=== PATIENT | female | born 1945 | race Caucasian/White ===

== ENCOUNTER 2017-11-13 19:01 | Emergency (ER) | payer SELFPAY ==
[2017-11-13 19:02] VITALS: BP 233/129; PULSE 82; PULSE 85; RESP 16; TEMP 37.1; O2SAT 94; O2SAT 95; BMI 54.2
[2017-11-13 19:54] VITALS: BP 215/122; PULSE 85; RESP 14; O2SAT 99
--- NOTE | 2017-11-13 20:11 | ED.VISSUMM ---
- ER Visit Summary Date of Service: 11/13/17 Chief Complaint: [Pain in left leg] History of Present Illness: The patient is a 72 F [presents the emergency department with pain in her left leg that started about a month ago. Patient complains of numbness to both buttocks left greater than right. Patient denies any pain in her back. Patient denies any injury to her back. Patient states the pain in her left leg at times is very severe. Patient was told by some of her friends that it could be sciatic nerve type pain. Patient also states that she has a history of hypertension but stopped taking her blood pressure medicine 15 years ago and does not see a doctor regularly. Patient denies any chest pain or shortness of breath. Patient denies headaches. Patient denies any change in bowel or bladder function. Patient denies any weakness in extremities.] Physical Examination: [HEENT-PERRLA, EOMI. Cranial nerves II through XII grossly intact. TMs clear. Mucous membranes moist. No adenopathy. Cardiovascular-regular rate and rhythm without murmur or ectopy Lungs-clear to auscultation, chest wall stable without crepitus or subcu emphysema Abdomen-normoactive bowel sounds, soft, nontender, no rebound or rigidity, no peritoneal signs. Back exam-patient has no tenderness over the thoracic or lumbar spine. Patient has negative straight leg raises bilaterally. Patient has normal deep tendon reflexes of plus 2 out of 4 bilaterally at the patella and Achilles. Patient has no tenderness to palpation over the left upper extremity. There is no edema noted. Slightly decreased sensation to light touch in the left upper leg and bilateral buttocks. Extremities-intact ?4, normal range of motion, normal pulses, atraumatic]. Test Results: [Due to the patient's elevated blood pressure of 215/122 I recommended obtaining some basic lab work and EKG however patient is refusing due to the fact that she is limited and her finances and does not want to have any of that testing performed. This point I do not feel any imaging is indicated.] Emergency Department Course and Treatment: [I will refer patient to primary care physician and I will write her prescription for Norvasc as well as Flexeril and [place]. Patient understands that if her symptoms do not improve she may need further evaluation including imaging such as MRI to evaluate further. Patient states that under no circumstances will she ever want to undergo any type of surgery.] Treatment Plan: [Primary care referral as well as prescriptions for Norvasc and [place] and Flexeril] Disposition: [Discharged home in stable condition] Impression: [Sciatica Hypertension] This note was generated with [employer] dictation software. It may contain incorrect words, spelling, and punctuation that were not noted in review of the chart prior to signing ED Disposition - Plan for ED Patient: Chief Complaint: Back Referrals: Care Physician,No Primary [Primary Care Provider] -
--- NOTE | 2017-11-13 20:14 | ED.DEP ---
ED Disposition - Plan for ED Patient: Chief Complaint: Back Instructions: ED Sciatica, ED Hypertension Poss Prescriptions: Amlodipine Besylate [Norvasc] 5 mg PO DAILY #30 tab Hydrocodone/Acetaminophen [Benoit 5-325 Tablet] 1 - 2 ea PO 4X/DAY PRN PRN 5 Days #20 tab PRN Reason: Pain Cyclobenzaprine [Flexeril] 10 mg PO TID PRN #20 tab PRN Reason: Muscle Spasm Referrals: Care Physician,No Primary [Primary Care Provider] - Marcellus Morales MD [STAFF PHYSICIAN] - 3-5 Days
--- NOTE | 2017-11-13 20:17 | DCINST.ED_ITS ---
ED Disposition - Plan for ED Patient: Chief Complaint: Back Instructions: ED Sciatica, ED Hypertension Poss Prescriptions: Amlodipine Besylate [Norvasc] 5 mg PO DAILY #30 tab Hydrocodone/Acetaminophen [[place] 5-325 Tablet] 1 - 2 ea PO 4X/DAY PRN PRN 5 Days #20 tab PRN Reason: Pain Cyclobenzaprine [Flexeril] 10 mg PO TID PRN #20 tab PRN Reason: Muscle Spasm Referrals: Care Physician,No Primary [Primary Care Provider] - Marcellus Morales MD [STAFF PHYSICIAN] - 3-5 Days
[2017-11-13 20:20] VITALS: BP 180/95; PULSE 60; RESP 14; O2SAT 99
== END 2017-11-13 20:23 | disposition home or self-care (01) ==
PROVIDERS: Emergency Provider Emergency Medicine
DX: M54.32 Sciatica, left side (principal); I10 Essential (primary) hypertension; Z91.14 Patient's other noncompliance with medication regimen; Z90.49 Acquired absence of other specified parts of digestive tract; Z90.12 Acquired absence of left breast and nipple
CPT/HCPCS: 99282

== ENCOUNTER 2023-11-09 10:55 | Inpatient (IN) | payer MEDICARE, SELFPAY ==
[2023-11-09] VITALS (15 sets, daily range): BP systolic 122–188; BP diastolic 67–95; PULSE 66–127; RESP 17–25; TEMP 36.6–38.3; O2SAT 93–98; BMI 26.2; BMI 22.9
--- NOTE | 2023-11-09 11:21 | EX.ED.DYSGE1 ---
HPI History of Present Illness Chief Complaint: Wound PFSH [facility] Medical History (Updated 11/09/23 @ 13:[address] Skylar Holbrook MD) HTN (hypertension) History of left breast cancer Home Medications ?Medication ?Instructions ?Recorded ?Last Taken ?Type acetaminophen 500 mg tablet 1,000 mg PO Q2H PRN pain 11/09/23 11/09/23 History (Acetaminophen Extra Strength) aspirin 325 mg capsule 325 mg PO DAILY 11/09/23 11/09/23 History multivitamin (Daily Multi-Vitamin 1 tab PO DAILY 11/09/23 11/09/23 History tablet) zinc acetate 50 mg (zinc) capsule 50 mg PO DAILY 11/09/23 11/09/23 History (Galzin) Allergy/AdvReac Type Severity Reaction Status Date / Time promethazine (From Phenergan) Allergy Intermediate Other Verified 11/09/23 11:06 amoxicillin (From Augmentin) Allergy Other Verified 11/09/23 11:06 clavulanic acid (From Allergy Other Verified 11/09/23 11:06 Augmentin) Surgical History (Updated 11/09/23 @ 13:[address] Skylar Holbrook MD) S/P cholecystectomy S/P left mastectomy Social History Smoking Status: Never smoker EXAM Physical Exam Const Vital Signs: 11/09/23 10:57 11/09/23 11:57 11/09/23 13:00 Temperature 98.2 F Temperature Source Temporal Pulse Rate 103 H 78 Respiratory Rate 20 H 20 H Blood Pressure 188/95 H 174/84 H Blood Pressure Mean 126 114 Pulse Ox 96 97 Oxygen Delivery Method Room Air Room Air MDM MDM MDM Narrative Medical decision making narrative: HISTORY OF PRESENT ILLNESS: 70-year-old female presents with concern for right breast/flank mass. Notes this has been there is in February has been enlarging. She further states she has pain and started bleeding today which prompted her visit. She states she knows that the cancer but has not had money to get evaluated. Notes prior history of breast cancer in the left breast status postmastectomy. REVIEW OF SYSTEMS: Pertinent positives: Right breast mass Pertinent negatives: Fever, vomiting, abdominal pain, chest pain, headache PHYSICAL EXAM: Nursing triage notes reviewed, Vital signs reviewed Constitutional: please see mdm HENT: MMM Eyes: Pupils equal round and reactive to light, Extraocular muscles intact Neck: No stridor, no JVD, full neck ROM Lungs: Clear to auscultation, No wheezing or rales. No increased work of breathing, no conversational dyspnea, no accessory muscle use, no nasal flaring. 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 Has irregular borders appears cancerous. Irregular borders. Some excoriation of the skin noted was likely source of bleed : No CVAT Extremities: No edema Neuro: No focal neurological deficits, cranial nerves II through XII intact, 5/5 strength in all extremities. Intact sensation to light touch in all extremities, 2+ reflexes bilateral patella tendons. Normal gait. No ataxia. Skin: No rash or lesions noted MEDICAL DECISION MAKING: Chief Complaint: Mass External records reviewed: No recent hospitalizations, recent ED visits Factors affecting care: Breast cancer Social determinants of health: none History obtained from others: none Consults: hospitalist [facility] Narrative: Patient was initially hypertensive otherwise afebrile. Exam with large approximately 20 x 20 cm mass noted protruding from the right breast, no active bleeding noted, no pulsatile bleeding, no fluctuance, no induration, not warm. I considered the following differential diagnosis: Mass, abscess I obtained a broad lab and imaging workup to further elucidate the etiology of the patient's complaints ALL IMAGES (IF OBTAINED) HAVE BEEN PERSONALLY REVIEWED AND INTERPRETED BY MYSELF. 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 CMP without evidence of acute kidney injury, significant electrolyte abnormality, anion gap, no evidence hepatobiliary pathology. The synthesis the patient history, physical exam, labs images suggest likely anemia of chronic disease likely secondary to malignant breast mass. There is no active bleeding noted. The patient and/or family, caregivers express understanding. The patient and/or family, caregivers agrees with the plan. Shared decision making: I will have a discussion with the patient and or visitors regarding risk/benefits of further testing or admission. They will be made aware of of the risk/benefits inherent in this decision they will be given the opportunity to voice understanding. Total critical care time today provided was at least 0 minutes. This excludes separately billable procedures. Critical care time (if documented) is secondary to the patient having high probability of clinically significant/life threatening deterioration in the patient's condition which required my urgent intervention. Impression: 1. Right breast mass 2. Severe anemia 3. Leukocytosis Dispo: Admit to med surg This note was generated with [employer] dictation software. It may contain incorrect words, spelling, and punctuation that were not noted in review of the chart prior to signing. Lab Data Labs: Laboratory Results - last 24 hr 11/09/23 11/09/23 11/09/23 12:00 12:43 13:15 WBC 11.7 H RBC 2.95 L Hgb 6.6 L Hct 23.9 L MCV 81.0 MCH 22.4 L MCHC 27.6 L RDW Std Deviation 47.6 H RDW Coeff of Mahad 16.1 H Plt Count 667 H MPV 8.8 Immature Gran % (Auto) 0.500 Neut % (Auto) 79.9 H Lymph % (Auto) 12.7 L Person % (Auto) 6.5 Eos % (Auto) 0.1 Baso % (Auto) 0.3 Absolute Neuts (auto) 9.4 H Absolute Lymphs (auto) 1.48 Nucleated RBC % 0 Sodium 137 Potassium 3.5 Chloride 104 Carbon Dioxide 28.0 Anion Gap 5 BUN 15 Creatinine 0.54 L Estim Creat Clear Calc 59.56 Est GFR (MDRD) Af Amer 141 Est GFR (MDRD) Non-Af 117 BUN/Creatinine Ratio 27.9 H Glucose 178 H Calcium 10.1 Total Bilirubin 0.30 AST 16 ALT 16 Alkaline Phosphatase 142 H Total Protein 7.6 Albumin 1.8 L Globulin 5.8 H Albumin/Globulin Ratio 0.3 L Lipase 11 L Urine Color Yellow Urine Clarity Clear Urine pH 5.0 Ur Specific [place] 1.020 Urine Protein 30 H Urine Glucose (UA) Normal Urine Ketones 5 H Urine Occult Blood 10 H Urine Nitrite Negative Urine Bilirubin Negative Urine Urobilinogen Normal Ur Leukocyte Esterase Negative Crossmatch See Detail Radiography Diagnostic Testing: Clinical Impression(s) from Imaging Studies Brain CT 11/09/23 11:47 IMPRESSION: Chronic involutional changes of the brain. 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 Small bilateral renal cysts. The patient is status post cholecystectomy. Electronically Signed: Arthur Inman MD at 13:22 EDT , Discharge Plan Triage Chief Complaint: Wound ED Provider: Sharath Brantley Dx/Rx/DC Orders Prescriptions: No Action aspirin 325 mg capsule 325 mg PO DAILY multivitamin [Daily Multi-Vitamin] Tablet 1 tab PO DAILY acetaminophen [Acetaminophen Extra Strength] 500 mg tablet 1,000 mg PO Q2H PRN (Reason: pain) Patient Comments: PT STATES TRYS TO TAKE Q4H Galzin 50 mg (zinc) capsule 50 mg PO DAILY Primary Care Provider: Care Physician,No Primary Referrals: Care Physician,No Primary [Primary Care Provider] - Print Language: Sinhala
--- NOTE | 2023-11-09 11:47 | EKG12_ITS ---
Test Reason : Blood Pressure : / mmHG Vent. Rate : 109 BPM Atrial Rate : 000 BPM P-R Int : 000 ms QRS Dur : 078 ms QT Int : 372 ms P-R-T Axes : 000 000 077 degrees QTc Int : 500 ms Atrial fibrillation with rapid ventricular response with premature ventricular or aberrantly conducte d complexes Nonspecific ST and T wave abnormality Abnormal ECG Confirmed by Dinesh Quach ([id number]), senior technical editor GIANNA QUINTERO ([id number]) on 11/14/2023 9:36:19 AM Referred By: Confirmed By:Dinesh Quach
--- NOTE | 2023-11-09 11:47 | CT_ITS ---
STUDY: CT BRAIN WITH AND WITHOUT CONTRAST REASON FOR EXAM: Female, 78 years old. Mass r/o mets RADIATION DOSAGE (If Supplied By Facility): CTDIvol = ( 44.99 ) mGy, DLP = ( 1558.47 ) mGycm TECHNIQUE: Transaxial CT imaging of the brain was performed pre and post contrast administration. The examination was performed with intravenous administration of IV 100mL Isovue-300. Individualized dose optimization techniques were used for this CT. COMPARISON: None. FINDINGS: Normal soft tissue structures. There is hyperostosis frontalis internus. There is mild cerebral atrophy with widening of the extra-axial spaces and ventricular dilatation. Normal white matter tracts of the cerebral hemispheres. Normal basal ganglia and thalami. Normal brainstem. There is mild cerebellar atrophy. There is no intracranial hemorrhage. There are no findings of an acute ischemic infarction. Minimal mucosal thickening along the lateral wall of the right maxillary sinus inferiorly. CT/Brain/Head W/WO Contrast IMPRESSION: Chronic involutional changes of the brain. Electronically Signed: Arthur Inman MD at 13:13 EDT ,
--- NOTE | 2023-11-09 11:47 | CT_ITS ---
STUDY: CT CHEST, ABDOMEN T PELVIS WITH CONTRAST REASON FOR EXAM: Female, 78 years old. Right breast/chest mass RADIATION DOSAGE (If Supplied By Facility): CTDIvol = ( 15.08 ) mGy, DLP = ( 1342.66 ) mGycm TECHNIQUE: Transaxial imaging was performed following intravenous administration of IV 100mL Isovue-300. Multiplanar coronal and sagittal images were reformatted. Individualized dose optimization techniques were used for this CT. COMPARISON: No relevant priors. FINDINGS: CHEST There is a large 14.7 cm by 15.3 cm dense heterogeneous mass in the right breast extending into the right axilla with increased markings in the remainder of the breast and diffuse skin thickening. 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 Minimal linear atelectasis at the right lung base. There is no demonstrated pleural abnormality. Normal heart and pericardium. Normal mediastinum. Normal hilar regions. Normal unenhanced pulmonary arteries. Normal aorta arch and descending thoracic aorta. There are multi-level degenerative changes of the thoracic spine. ABDOMEN There is a mild degree of the central intrahepatic biliary ductal dilatation. The patient is status post cholecystectomy. There is a benign calcified granuloma of the spleen. Normal pancreas. Normal bilateral adrenal glands. There is a 1.9 cm cyst in the medial inferior aspect of the right kidney as well as 8.2 mm cyst in the anterior aspect of the right kidney. There is a 1 cm cyst in the lower pole of the left kidney. Normal visualized stomach. Normal small intestine. Normal colon. The appendix is visualized and appears normal. Normal abdominal aorta. Normal inferior vena cava. Normal retroperitoneum. Normal abdominal wall. There are diffuse degenerative changes of the visualized lumbar spine. PELVIS Normal urinary bladder. There is no pelvic fluid. There is no pelvic lymphadenopathy or mass lesion. There is diffuse atherosclerotic calcification of the pelvic arteries. Normal abdominal wall. Marked degree of osteoarthritis and joint space narrowing with subchondral cysts of the left hip joint suggestive of avascular necrosis. 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 Small bilateral renal cysts. The patient is status post cholecystectomy. Electronically Signed: Arthur Inman MD at 13:22 EDT ,
[2023-11-09] MEDS: 0.9% Normal Saline (500mL Bag) 500 ML 1000 ML IV (11:54)
[2023-11-09] MEDS: Morphine 4 MG/ML Syringe IV ×4 (11:54→21:20)
[2023-11-09] MEDS: Ondansetron 4 MG/2 ML Vial IV (11:55)
[2023-11-09 12:10] LABS: Absolute Lymphocyte Count 1.48 X10^3/uL (0.83-4.51); Absolute Neutrophil Count 9.4 X10^3/uL (2.0-7.7); Basophil# 0.03 X10^3/uL; Basophil% 0.3 % (0-1); Eosinophil# 0.01 X10^3/uL; Eosinophils% 0.1 % (0-5); Hematocrit 23.9 % (37-47); Hemoglobin 6.6 g/dL (12.0-15.0); Lymphocyte # 1.48 X10^3/ul (0.83-4.51); Lymphocyte % 12.7 % (19-41); Mean Corp Hgb Conc 27.6 g/dL (32-36); Mean Corpuscular Hgb 22.4 pg (27.0-32.0); Mean Platelet Vol. 8.8 fl (6.2-12.0); Monocyte# 0.76 X10^3/uL; Monocyte% 6.5 % (0-10); NRBC Flagged by Analyzer 0 % (0-5); Neutrophil # 9.35 X10^3/uL (2.7-7.7); Neutrophil % 79.9 % (47-70); Platelet Count 667 K/mm3 (150-450); RBC Distribution Width CV 16.1 % (11.6-14.6); RBC Distribution Width SD 47.6 fl (35.1-43.9); Red Blood Count 2.95 M/mm3 (4.2-5.4); White Blood Count 11.7 K/mm3 (4.4-11.0)
[2023-11-09 12:32] LABS: ALB/GLOB Ratio 0.3 RATIO (0.9-2.4); AST(SGOT) 16 U/L (15-37); Alanine Aminotransfer ALT/SGPT 16 U/L (13-56); Albumin, Serum 1.8 g/dL (3.2-5.0); Alkaline Phosphatase 142 U/L (45-117); Anion Gap 5 (5-15); BUN 15 mg/dL (7-18); BUN/Creat Ratio 27.9 RATIO (10-20); Calcium,Total 10.1 mg/dL (8.5-10.1); Chloride 104 mmol/L (98-107); Creatinine, Serum 0.54 mg/dL (0.55-1.02); EST Glomerular Filtration Rate 117 mL/min (>60); Est Glom Filt Rate - Afr Amer 141 mL/min (>60); Estimated Creatinine Clearance 59.56 ml/min; Globulin 5.8 g/dL (2.2-4.2); Glucose 178 mg/dL (74-106); Lipase 11 U/L (13-75); Potassium 3.5 mmol/L (3.5-5.1); Protein, Total 7.6 g/dL (6.4-8.2); Sodium Level 137 mmol/L (136-145)
[2023-11-09 13:18] LABS: Bacteria 0 SEEN /hpf (None Seen); Mucous, Urine 0 SEEN /hpf (<or=2+); Red Blood Cells-Urine 0 SEEN /hpf (0-5); Squamous Epithelial Cells - UA 0 SEEN /hpf (5-10); White Blood Cells 0 SEEN /hpf (0-5)
[2023-11-09 13:47] LABS: Color, Urine Yellow (Yellow); Glucose, Dipstick Normal (Normal); Ketone-Dipstick 5 mg/dl (Negative); Leukocyte Esterase-Dipstick Negative /ul (Negative); Nitrite-Dipstick Negative (Negative); Occult Blood-Urine 10 /ul (Negative); Protein-Dipstick 30 mg/dl (Negative); Urine Bilirubin Dipstick Negative (Negative); Urine Clarity Clear (Clear); Urine Urobilinogen Normal (Normal)
--- NOTE | 2023-11-09 13:55 | HP.PCM.HOS_ITS ---
HPI - General General Date of Admission: 11/09/23 Date of Service: 11/09/23 Chief Complaint: R breast mass/pain, ABLA. HPI Narrative The patient is a 78 y/o F w/ PMHx: HTN, Hx Breast CA s/p L mastectomy who presents to the [facility] ED on 11/09/23 with history of right breast and flank enlarging mass noted to have been there since February however it has been continuing to enlarge and has become painful starting to bleed on day of presentation prompting eventual ED evaluation. Patient notes that she is aware that it is likely cancer but she has not had it evaluated at all secondary to concerns for money. She does report fatigue and malaise and recently some shortness of breath when she exerts herself and attempt to perform aggressive activities. She does report muscle loss and poor appetite. She denies any overt fevers and specific night sweats but is not the best historian. Upon evaluation patient does have a powdered brown material all of her head which she states she gets from the [employer] store and puts it on because of her baldness. Workup in the ED included T98.2, heart 103, BP 188/95, respiratory rate 20, 96% on room air with most recent repeat vitals heart rate at 78, BP 1 7484, respiratory rate 20, 97% on room air, CBC with WBC 11.7, hemoglobin 6.6, MCV 81, platelet 667 with left shift, CMP with BUN/creatinine 15/0.54, GFR 141, glucose 178, alk phos 142 with evidence of low albumin, globulin otherwise not marked appearing, lipase 11, type and cross initiated per ED physician, CT head with chronic involutional changes, CT chest/abdomen/pelvis with contrast with a 14.7 cm x 15.3 cm dense heterogeneous mass in the right breast extending to the right axilla with increased markings in the residual breast and 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 In the ED patient initiated 1 unit PRBC transfusion. In the ED patient ministered morphine 4 mg IV x 1 and Zofran 4 mg IV x 1. FOLLOWING INITIAL EVALUATION: Called back into room, during evaluation initially when removed ABD from the R breast mass there was onset of BRB but stopped with pressure and had requested dressing to be replaced. Patient was being evaluated by General surgery team and had onset spontaneous BRB shooting out of the breast mass all over the floor and patient. Family left the room and staffing director came and notified myself and the ED physician. The patient upon evaluation had notable BRB in those regions but surgery had held pressure and the bleeding from the mass had subsided. ED physician placed antihemorrhage pledget soaked in lidocaine and epinephrine with then ABDs overlaying this and this was KENY wrapped around the patient body. Initially had planned MS given stable VS but following more tachycardic and notable blood loss during this event thus transitioned to PCU. Supervising RN notified. [facility] Medical History (Updated 11/09/23 @ 15:[address] Skylar Holbrook MD) HTN (hypertension) History of left breast cancer Home Medications ?Medication ?Instructions ?Recorded ?Last Taken ?Type acetaminophen 500 mg tablet 1,000 mg PO Q2H PRN pain 11/09/23 11/09/23 History (Acetaminophen Extra Strength) aspirin 325 mg capsule 325 mg PO DAILY 11/09/23 11/09/23 History multivitamin (Daily Multi-Vitamin 1 tab PO DAILY 11/09/23 11/09/23 History tablet) zinc acetate 50 mg (zinc) capsule 50 mg PO DAILY 11/09/23 11/09/23 History (Galzin) Allergy/AdvReac Type Severity Reaction Status Date / Time promethazine (From Phenergan) Allergy Intermediate Other Verified 11/09/23 11:06 amoxicillin (From Augmentin) Allergy Other Verified 11/09/23 11:06 clavulanic acid (From Allergy Other Verified 11/09/23 11:06 Augmentin) Family History (Updated 11/09/23 @ 15:[address] Skylar Holbrook MD) Mother Breast cancer Diagnoses in her 80s, unclear type of breast CA. Diabetes Father Diabetes Hypertension Heart disease Heart failure Surgical History S/P cholecystectomy S/P left mastectomy Social History (Updated 11/09/23 @ 15:[address] Skylar Holbrook MD) household members: none Smoking Status: Never smoker alcohol intake: never substance use type: does not use ROS ROS Narrative Admission Review of Systems: CONSTITUTIONAL: No fever, chills, + weakness, weight loss, fatigue. HEENT: + Balding scalp. Eyes: No visual loss, blurred vision, double vision or yellow sclerae. Ears, Nose, Throat: No hearing loss, sneezing, congestion, runny nose or sore throat. SKIN: No rash or itching, lesions, wounds except + notable R breast mass, friable, intermittently bleeding, painful, enlarging. CARDIOVASCULAR: + Lateral chest pain near the mass region. No palpitations, edema, orthopnea, syncopal events. RESPIRATORY: + Dyspnea with exertion. No cough or sputum, wheezing, hemoptysis. GASTROINTESTINAL: No anorexia, nausea, vomiting or diarrhea, abdominal pain, melena, BRBPR. GENITOURINARY: No dysuria, frequency, urgency or retention. NEUROLOGICAL: No headache, dizziness, syncope, paralysis, ataxia, numbness or tingling in the extremities, focal weakness, change in bowel or bladder control, seizure. MUSCULOSKELETAL: + muscle, back pain, joint pain or stiffness. HEMATOLOGIC: + anemia, bleeding actively from breast mass, easy brusing. LYMPHATICS: No enlarged nodes. No history of splenectomy. PSYCHIATRIC: No history of depression or anxiety. ENDOCRINOLOGIC: No reports of sweating, cold or heat intolerance. No polyuria or polydipsia. ALLERGIES: No history of asthma, hives, eczema or rhinitis. Vital Signs Vital Signs Vital Signs: 11/09/23 10:57 11/09/23 11:57 11/09/23 13:00 Temperature 98.2 F Temperature Source Temporal Pulse Rate 103 H 78 Respiratory Rate 20 H 20 H Blood Pressure 188/95 H 174/84 H Blood Pressure Mean 126 114 Pulse Ox 96 97 Oxygen Delivery Method Room Air Room Air Weight Weight: 162 lb 11.218 oz Body Mass Index (BMI) 26.2 Physical Exam Narrative Physical Examination: General: Awake, alert, oriented x 3 and cooperative, seated upright in the ED bed, anxious, fatigued. Skin: Normal color, normal turgor, no icterus, no cyanosis except + notable R significantly large approximately 15 x 15 cm breast mass, friable, intermittently bleeding, painful to palpation. HEENT: AT/NC, EOMI, PERRLA, mildly dry MM, no carotid bruits or JVD noted, balding scalp with superficial topical powder applied which is brown in color. Lungs: Diminished, greater bases, mildly increased respiratory rate but no distress, no rales, ronchi or wheezing. Heart: Irregular, tachycardic, noted to be sinus arrhythmia on telemetry monitoring; no gallop, rub audible. Abdomen: Soft, NTTP, ND, hyperactive BS, no appreciated HSM. Extremities: No cyanosis, no clubbing, no marked peripheral edema, evidence of significant muscle wasting/fat loss as well. Neurological: Patient awake, alert, oriented as noted, cognitive function intact; pupils equally reactive to light and accommodation, cranial nerves grossly normal, moving all 4 extremities, no focal deficits, strength moderately to severely globally decreased. Psychiatric: Affect appears fatigued, anxious, suspect likely underlying anxiety and depression but no documented history. Results Lab / Micro Data 11/09/23 12:00 11/09/23 12:00 Labs: Laboratory Results - last 24 hr 11/09/23 12:00: WBC 11.7 H, RBC 2.95 L, Hgb 6.6 L, Hct 23.9 L, MCV 81.0, MCH 22.4 L, MCHC 27.6 L, RDW Std Deviation 47.6 H, RDW Coeff of Mahad 16.1 H, Plt Count 667 H, MPV 8.8, Immature Gran % (Auto) 0.500, Neut % (Auto) 79.9 H, Lymph % (Auto) 12.7 L, [place] % (Auto) 6.5, Eos % (Auto) 0.1, Baso % (Auto) 0.3, A bsolute Neuts (auto) 9.4 H, Absolute Lymphs (auto) 1.48, Nucleated RBC % 0, Sodium 137, Potassium 3.5, Chloride 104, Carbon Dioxide 28.0, Anion Gap 5, BUN 15, Creatinine 0.54 L, Estim Creat Clear Calc 59.56, Est GFR (MDRD) Af Amer 141, Est GFR (MDRD) Non-Af 117, BUN/Creatinine Ratio 27.9 H, Glucose 178 H, Calcium 10.1, Total Bilirubin 0.30, AST 16, ALT 16, Alkaline Phosphatase 142 H, Total Protein 7.6, Albumin 1.8 L, Globulin 5.8 H, Albumin/Globulin Ratio 0.3 L, Lipase 11 L 11/09/23 12:43: Crossmatch See Detail 11/09/23 13:15: Urine Color Yellow, Urine Clarity Clear, Urine pH 5.0, Ur Specific [place] 1.020, Urine Protein 30 H, Urine Glucose (UA) Normal, Urine Ketones 5 H, Urine Occult Blood 10 H, Urine Nitrite Negative, Urine Bilirubin Negative, Urine Urobilinogen Normal, Ur Leukocyte Esterase Negative, Urine RBC 0 SEEN, Urine WBC 0 SEEN, Ur Squamous Epith Cells 0 SEEN, Urine Bacteria 0 SEEN, Urine Mucus 0 SEEN Imaging Radiology Impression Brain CT 11/09/23 11:47 IMPRESSION: Chronic involutional changes of the brain. 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 Small bilateral renal cysts. The patient is status post cholecystectomy. Electronically Signed: Arthur Inman MD at 13:22 EDT , Assessment & Plan Assessment/Plan (1) ABLA (acute blood loss anemia): (2) Breast mass in female: PLAN: Plan The patient is a 78 y/o F w/ PMHx: HTN, Hx Breast CA s/p L mastectomy who presents to the [facility] ED on 11/09/23 with history of right breast and flank enlarging mass noted to have been there since February however it has been continuing to enlarge and has become painful starting to bleed on day of presentation prompting eventual ED evaluation. #1. 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 Given need for PRBC administration and bleeding from the breast mass, will admit to PCU, continue planned 1 unit administration with repeat H&H following and continued HH trending with AM CBC, will continue compressive dressings, will request wound RN evaluation as well as Radiation Onc for palliative radiation and request General surgery consultation for assistance with bleeding in addition to Bx. Will obtain procalcitonin, magnesium and phosphorus, nutrition consulted to assist given significant albumin alteration and evidence of muscle/fat wasting with suspected malnutrition, as needed oral and IV pain regimen, PT/OT/case management consulted for discharge planning. #2. Acute blood loss anemia suspected likely on chronic component but unclear as no comparison labs: Likely secondary to bleeding from cancerous lesion, 1 unit PRBC initiated in the ED, will repeat H&H 1 to 2 hours following and continue to cycle given recurrent bleeding during evaluation, repeat CBC in the AM, obtain iron panel, ferritin additionally requested. #3. Hyperglycemia: Admission glucose 178, possibly stress response, will obtain hemoglobin A1c to be cautious. No glucose noted in urinalysis. #4. Hypertension: Patient not on any medications for high blood pressure potentially secondary to cost, at this time will maintain on IV as needed hydralazine and add back her previous amlodipine 5 mg daily with further adjustments as needed. #5. Severe protein calorie malnutrition: Evidence poor intake, low protein/albumin on CMP, muscle and fat loss evident, nutrition consulted for recommendations. #6. DVT prophylaxis: SCDs. #7. CODE status: Patient HCPOA and healthcare power of fractionating still operator are not in place but she notes her daughter who is present would be that individual for her. She is interested in setting these items up thus recommended she discuss and reviewed with case management/social work to assist. Discussed CODE status at length including difference between FULL code, DNR-CCA and DNR-CC status. Following discussions about the differences in these status, requested DNR-CCA, no intubation status. Advanced Care Planning Face to Face Time: 16 minutes. Charges/Coding Visit Charges Inpatient E&M: 77408 Init Hosp L3 Procedures Hospitalists Procedures: 13871 Advncd Care Plan 30 Min
--- NOTE | 2023-11-09 15:01 | CON.PCM.SX_ITS ---
Assessment & Plan Assessment/Plan (1) Breast mass in female: PLAN: I have been consulted in conjunction with Dr. Blum. Dr. Blum will plan to perform an ultrasound-guided right breast biopsy at bedside tomorrow. Patient will be held NPO after midnight in case biopsy will need completed on the OR or in case bleeding can not be stopped at bedside. Plan to have surgifoam and floseal at bedside upon patient arrival to the floor in case of bleeding over night. this has been communicated via nursing communication. Plan to hold patient's full strength aspirin. Dr. Blum will supply the biopsy instruments needed. We will need to have ultrasound machine available outside of the room for the biopsy. Patient will plan to be transfused PRBC today. She will meet with radiation oncology tomorrow to come up with a plan for treatment moving forward. Patient has had the opportunity to ask and have questions answered. Patient verbally understands and agrees with the plan. Thank you for allowing us to participate in this patient's care. HPI Consult Data Date of Consult: 11/09/23 HPI Narrative Reason for Consultation: Right breast mass HPI Narrative: RAJ STEEN, is a 78 F who presents with a bleeding right breast mass. Patient notes she had this right breast mass which started in February. Patient notes financially she was not able to seek care. She noted the mass continued to grow. Patient notes today the mass started to bleed uncontrollably and so she contacted a family member and called EMS to bring her to the ED. Patient denies any bleeding previously from this mass. She notes a history of left breast cancer with subsequent left mastectomy in 1996. She denies having any chemotherapy or radiation treatment at that time. Patient notes she is on aspirin full strength. She lives alone at home. 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 Hgb was 6.6 upon admission. [facility], [facility] Medical History (Updated 11/09/23 @ 15:[address] Skylar Holbrook MD) HTN (hypertension) History of left breast cancer Home Medications ?Medication ?Instructions ?Recorded ?Last Taken ?Type acetaminophen 500 mg tablet 1,000 mg PO Q2H PRN pain 11/09/23 11/09/23 History (Acetaminophen Extra Strength) aspirin 325 mg capsule 325 mg PO DAILY 11/09/23 11/09/23 History multivitamin (Daily Multi-Vitamin 1 tab PO DAILY 11/09/23 11/09/23 History tablet) zinc acetate 50 mg (zinc) capsule 50 mg PO DAILY 11/09/23 11/09/23 History (Galzin) Allergy/AdvReac Type Severity Reaction Status Date / Time promethazine (From Phenergan) Allergy Intermediate Other Verified 11/09/23 11:06 amoxicillin (From Augmentin) Allergy Other Verified 11/09/23 11:06 clavulanic acid (From Allergy Other Verified 11/09/23 11:06 Augmentin) Family History (Updated 11/09/23 @ 15:[address] Skylar Holbrook MD) Mother Breast cancer Diagnoses in her 80s, unclear type of breast CA. Diabetes Father Diabetes Hypertension Heart disease Heart failure Surgical History S/P cholecystectomy S/P left mastectomy Social History (Updated 11/09/23 @ 15:[address] Skylar Holbrook MD) household members: none Smoking Status: Never smoker alcohol intake: never substance use type: does not use ROS Constitutional Constitutional: Reports fatigue, weakness and weight loss Eyes Eyes: Reports systems reviewed and no addt'l complaints, except as documented ENT HEENT: Reports systems reviewed and no addt'l complaints, except as documented Cardiovascular Cardiovascular: Reports systems reviewed and no addt'l complaints, except as documented Respiratory/Chest Respiratory/Chest: Reports systems reviewed and no addt'l complaints, except as documented Gastrointestinal Gastrointestinal: Reports systems reviewed and no addt'l complaints, except as documented Genitourinary Genitourinary: Reports systems reviewed and no addt'l complaints, except as documented Musculoskeletal Musculoskeletal: Reports systems reviewed and no addt'l complaints, except as documented Integumentary Integumentary: Reports systems reviewed and no addt'l complaints, except as documented Neurologic Neurologic: Reports systems reviewed and no addt'l complaints, except as documented Psychiatric Psychiatric: Reports systems reviewed and no addt'l complaints, except as documented Endocrine Endocrinology: Reports systems reviewed and no addt'l complaints, except as documented Hematologic/Lymphatic Hematologic/Lymphatic: Reports systems reviewed and no addt'l complaints, except as documented Allergic/Immunologic Allergic/Immunologic: Reports systems reviewed and no addt'l complaints, except as documented Physical Exam Const alert, oriented x3 and no apparent distress HEENT normocephalic Head and Scalp: other Other Details: Thick layer of dirt film over top of the scalp Eyes PERRL Neck full ROM Chest Chest Narrative: Right breast- significantly large mass of the right breast with very friable tissue. As I was obtaining a brief history from the patient, patient's support person noted patient was bleeding onto the floor. Both support people ran out. I quickly grabbed a towel out of the cabinet, went to the right breast removed the ABD dressing that was there and noted an eraser sized opening with blood jetting out of the opening. I placed the towel over top of the opening and applied significant compression. Dr. Brantley and Dr. Holbrook returned to the room. Wall suction was hooked up. Patient's gown was removed. Towel was removed and liquid lidocaine was poured onto the right breast. Bleeding had ceased. Surgifoam was applied over top of the right lateral side of the mass followed by multiple ABD pads and 2 KENY wraps. Patient's bedside was saturated with blood. Sheets were removed. Bed was wiped with bleach wipe. Patient's depends were replaced. Resp normal respiratory effort and clear to auscultation bilaterally Cardio Rate: tachycardic GI normal to inspection, nondistended, normoactive bowel sounds no CVA tenderness Back/Spine no CVA tenderness Extremity General Extremity: atrophy Skin Lesions: lesion noted Wound Narrative: As described in the breast section Neuro no focal motor deficits and no sensory deficits noted Psych Appearance: unkempt Attitude: bizarre Thought Process: flight of ideas Lab / Micro Data 11/09/23 12:00 11/09/23 12:00 Labs: Laboratory Results - last 24 hr 11/09/23 12:00: WBC 11.7 H, RBC 2.95 L, Hgb 6.6 L, Hct 23.9 L, MCV 81.0, MCH 22.4 L, MCHC 27.6 L, RDW Std Deviation 47.6 H, RDW Coeff of Mahad 16.1 H, Plt Count 667 H, MPV 8.8, Immature Gran % (Auto) 0.500, Neut % (Auto) 79.9 H, Lymph % (Auto) 12.7 L, [place] % (Auto) 6.5, Eos % (Auto) 0.1, Baso % (Auto) 0.3, A bsolute Neuts (auto) 9.4 H, Absolute Lymphs (auto) 1.48, Nucleated RBC % 0, Sodium 137, Potassium 3.5, Chloride 104, Carbon Dioxide 28.0, Anion Gap 5, BUN 15, Creatinine 0.54 L, Estim Creat Clear Calc 59.56, Est GFR (MDRD) Af Amer 141, Est GFR (MDRD) Non-Af 117, BUN/Creatinine Ratio 27.9 H, Glucose 178 H, Calcium 10.1, Total Bilirubin 0.30, AST 16, ALT 16, Alkaline Phosphatase 142 H, Total Protein 7.6, Albumin 1.8 L, Globulin 5.8 H, Albumin/Globulin Ratio 0.3 L, Lipase 11 L 11/09/23 12:43: Blood Type O POSITIVE, Antibody Screen NEGATIVE, Crossmatch See Detail 11/09/23 13:15: Urine Color Yellow, Urine Clarity Clear, Urine pH 5.0, Ur Specific [place] 1.020, Urine Protein 30 H, Urine Glucose (UA) Normal, Urine Ketones 5 H, Urine Occult Blood 10 H, Urine Nitrite Negative, Urine Bilirubin Negative, Urine Urobilinogen Normal, Ur Leukocyte Esterase Negative, Urine RBC 0 SEEN, Urine WBC 0 SEEN, Ur Squamous Epith Cells 0 SEEN, Urine Bacteria 0 SEEN, Urine Mucus 0 SEEN Imaging Radiology Impression Brain CT 11/09/23 11:47 IMPRESSION: Chronic involutional changes of the brain. 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 Small bilateral renal cysts. The patient is status post cholecystectomy. Electronically Signed: Arthur Inman MD at 13:22 EDT , Charges/Coding Visit Charges Office Visits / Consults: 85041 IP Consult L3
[2023-11-09 15:36] LABS: Magnesium 2.1 mg/dL (1.6-2.6); Phosphorus 2.4 mg/dL (2.5-4.9)
[2023-11-09 16:23] LABS: Ferritin 423 ng/mL (8-252); Iron 15 ug/dL (50-170); Iron Binding Capacity,Total 179 ug/dL (250-450); PERCENT IRON SATURATION 8.4 % (15.0-55.0)
[2023-11-09] MEDS: 0.9% Normal Saline (1000mL) 1,000 ML 999 ML IV (17:48)
[2023-11-09] MEDS: 0.9% Saline Lock 10 ML Syringe IV (18:56)
[2023-11-09] MEDS: 0.9% Normal Saline (1000mL) 1,000 ML 100 ML IV (19:02)
[2023-11-09 19:03] LABS: Hematocrit 22.6 % (37-47); Hemoglobin 6.5 g/dL (12.0-15.0)
[2023-11-09] MEDS: oxyCODONE 5 MG Tablet PO (19:06)
[2023-11-09] MEDS: Acetaminophen 325 MG Tablet 650 MG PO (21:20)
[2023-11-09] MEDS: Famotidine 20 MG Tablet PO (21:20)
[2023-11-09] MEDS: Menthol/Lanolin/Calamine/Znox 113 GM Tube 1 APPLIC TOPICAL (21:21)
[2023-11-10] VITALS (8 sets, daily range): BP systolic 126–150; BP diastolic 64–92; PULSE 81–110; RESP 16–18; TEMP 36.2–37.7; O2SAT 93–96; BMI 24.7
--- NOTE | 2023-11-10 | IMM_PTH ---
PATIENT: RAJ SETEN LOC: [facility] U#:[id number] AGE/SX: 78/F ROOM: [facility] RE11/09/[address]: Dr. Josette Bhandari DO : 1945 BED: 1 DIS: 11/16/2023 SPEC #: [id number] RECD: 11/11/23 13:11 STATUS: SOUT REQ #: [id number] MARSHA: 11/10/23 00:[address]: Jane Blum DEPT: IMMUNOHISTOCHEMISTRY RECD BY: Ari Kulkarni ENTERED: 11/11/23 13:13 SP TYPE: IMMUNO OTHR DR: MD Dr. William Veliz, DO Dr. Patricio Mendes, DO No Primary Care Phys Tissues: Breast, NOS Procedures: CALPONIN-1 (add) CK5-6 (add) CK8 (add) E-CAD (add) HER2 MARYA (add) KI-67 (add) P53 (add) WY (add) P40 (add) MOC-31 (add) ER (initial) Comments: @ Ordering doctor for ER edited from to @ by ABELINO at 11/11/23 1313 @ Ordering doctor for CALP. edited from to @ by ABELINO at 11/11/23 1313 @ Ordering doctor for CK5-6. edited from to @ by ABELINO at 11/11/23 1313 @ Ordering doctor for CK8. edited from to @ by ABELINO at 11/11/23 1313 @ Ordering doctor for ECAD. edited from to @ by ABELINO at 11/11/23 1313 @ Ordering doctor for HER2. edited from to @ by MRRAGHU at 11/11/23 1313 @ Ordering doctor for KI67. edited from to @ by MRRAGHU at 11/11/23 1313 @ Ordering doctor for P53. edited from to @ by MRRAGHU at 11/11/23 1313 @ Ordering doctor for WY. edited from to @ by MRRAGHU at 11/11/23 1313 @ Ordering doctor for P40. edited from to @ by MRRAGHU at 11/11/23 1313 @ Ordering doctor for MOC31 edited from to @ by MRRAGHU at 11/11/23 1313 @ Submitting doctor edited from to DR.TROBOT Talley by MRRAGHU at 11/11/23 1313 PHYSICIAN & [place] [id number] SPECIMEN INFORMATION: Tissue Source: Right breast mass Clinical Info: Right breast mass Specimen Number: [id number] CPT code: 62632,53745l0 METHODOLOGY: Deparaffinized sections of prefer/formalin-fixed tissue or PAP/DQ stained slides are incubated with monoclonal/polyclonal antibodies/oligonucleotide probes. Localization is made via biotin free immunoperoxidase method. Appropriate controls are performed and reacted as expected. Results on target cell population are indicated in the following table: RESULTS: ANTIBODY / CLONE RESULT P53 (DO-7) positive, missense pattern Ki-67 (30-9) positive, 90% CK8 (26cbvaN92) positive CK5-6 (D5 & 1684) positive Calponin-1 (JR852N) negative P40 (BC28) negative E-Cad (ECH-6) positive MOC-31 (4561) positive MORPHOMETRIC ANALYSIS ER (clone 6F11) 0% WY (clone 16/1E2) 0% Her-2Neu (clone CB11) 2+ The prognostic test for HER2 is performed on formalin-fixed paraffin embedded tissue. A 3+ (positive) staining pattern is defined as intense, homogeneous, complete, circumferential membranous staining in >10% of contiguous tumor cells. A similar weak (2+) staining pattern is interpreted as equivocal. TIGRE follow-up testing is recommended for all equivocal cases. Positivity/negativity for ER/WY is reported if > or < 1% of the tumor cells are immuno- reactive, respectively. The ASCO/CAP criteria is used for scoring. Reference: Journal of Clinical Oncology, 2013; 31:2191-4271 & 2010; 16:4815-9236. Ischemic time: Less than one hour. Duration of fixation: 12 Hrs; Sample Adequate: Yes. These assays have not been validated on decalcified tissues. Results should be interpreted with caution given the likelihood of false negativity on decalcified specimens or fixation greater than 72 hours. Alternative testing methods (FISH/dualISH for Her2; gene expression for ER) are recommended, if applicable. Please notify the laboratory if additional testing is required. 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 A minimum of 20 cells representing > 10% of contiguous and homogeneous invasive tumor cells were analyzed. HER2 gene status is classified as Non-amplified (HER2/Chr17 ratio < 2.0) or Amplified (HER2/Chr17 ratio greater than or equal to 2.0). If the resulting HER2/Chr17 ratio falls within 1.8 - 2.2 (Borderline), retesting by FISH is recommended. Reference: Libby AC, Dasha BAH, Asmita DG, et al: Recommendations for Human Epidermal Growth Factor Receptor 2 Testing in Breast Cancer: [place] Society of Clinical Oncology / College of [place] [employer] Clinical Practice Guideline Update. J Clin Oncol 31:5763-2581, 2013. INTERPRETATION: Right breast mass: Invasive ductal carcinoma, nuclear grade 3 Negative for estrogen receptors (unfavorable prognostic indicator). Negative for progesterone receptors (unfavorable prognostic indicator). Negative for overexpression of TFN9ysa. AM/mr 11/14/2023
[2023-11-10] MEDS: oxyCODONE 5 MG Tablet PO ×4 (00:28→23:52)
[2023-11-10] MEDS: 0.9% Saline Lock 10 ML Syringe IV ×3 (00:29→21:26)
[2023-11-10 03:17] LABS: Basophil# 0.04 X10^3/uL; Basophil% 0.4 % (0-1); Eosinophil# 0.02 X10^3/uL; Eosinophils% 0.2 % (0-5); Hematocrit 25.7 % (37-47); Hemoglobin 7.5 g/dL (12.0-15.0); Lymphocyte % 20.8 % (19-41); Mean Corp Hgb Conc 29.2 g/dL (32-36); Mean Corpuscular Hgb 24.4 pg (27.0-32.0); Mean Corpuscular Volume 83.4 fL (81-99); Mean Platelet Vol. 8.5 fl (6.2-12.0); Monocyte% 8.9 % (0-10); NRBC Flagged by Analyzer 0 % (0-5); Neutrophil % 69.4 % (47-70); Platelet Count 462 K/mm3 (150-450); RBC Distribution Width CV 15.7 % (11.6-14.6); RBC Distribution Width SD 47.8 fl (35.1-43.9); Red Blood Count 3.08 M/mm3 (4.2-5.4); White Blood Count 10.1 K/mm3 (4.4-11.0)
[2023-11-10] MEDS: Morphine 4 MG/ML Syringe IV ×4 (03:18→21:19)
[2023-11-10 03:39] LABS: ALB/GLOB Ratio 0.3 RATIO (0.9-2.4); AST(SGOT) 45 U/L (15-37); Alanine Aminotransfer ALT/SGPT 36 U/L (13-56); Albumin, Serum 1.6 g/dL (3.2-5.0); Alkaline Phosphatase 190 U/L (45-117); Anion Gap 6 (5-15); BUN 10 mg/dL (7-18); BUN/Creat Ratio 30.3 RATIO (10-20); Calcium,Total 8.6 mg/dL (8.5-10.1); Chloride 103 mmol/L (98-107); Creatinine, Serum 0.33 mg/dL (0.55-1.02); EST Glomerular Filtration Rate 205 mL/min (>60); Est Glom Filt Rate - Afr Amer 248 mL/min (>60); Estimated Creatinine Clearance 54.26 ml/min; Globulin 4.9 g/dL (2.2-4.2); Glucose 147 mg/dL (74-106); Potassium 3.5 mmol/L (3.5-5.1); Protein, Total 6.5 g/dL (6.4-8.2); Sodium Level 136 mmol/L (136-145)
--- NOTE | 2023-11-10 07:37 | BRBX_PTH ---
PATIENT: RAJ STEEN LOC: [facility] U#:[id number] AGE/SX: 78/F ROOM: [facility] RE11/09/[address]: Dr. Josette Bhandari DO : 1945 BED: 1 DIS: 11/16/2023 SPEC #: [id number] RECD: 11/10/23 08:36 STATUS: DAVID REJose Luis #: [id number] MARSHA: 11/10/23 07:[address]: Jane Blum DEPT: SURGICAL PATHOLOGY RECD BY: Nallely Alberts ENTERED: 11/10/23 12:24 SP TYPE: BREAST BX OTHR DR: MD Dr. William Veliz, DO Dr. Patricio Mendes, No Primary Care Phys Tissues: Right breast, NOS Procedures: Surgery Specimen Level IV HEADER OPERATION: Ultrasound guided right breast biopsy PRE-OP DIAGNOSIS: Right breast mass TISSUE SUBMITTED: Right breast tissue- mass MICROSCOPIC DIAGNOSIS Right breast mass, core biopsy: Invasive ductal carcinoma. See synoptic report below. AM/ 11/11/2023 COMMENT INVASIVE BREAST CANCER SUMMARY: Procedure: Needle core biopsy Specimen Laterality: Right breast Tumor site: Not specified Histologic type: Invasive ductal carcinoma Provisional Histologic grade: 3 Tubule Differentiation Score: 3 Nuclear Pleomorphism Score: 2 Mitotic Rate Score: 3 Tumor Size ( greatest dimension): 9.0mm Ductal Carcinoma Insitu: Not identified Angiolymphatic Invasion: Not identified Microcalcifications: Not identified Additional Findings: None Breast Marker Study: [id number] ER:0% (negative) NM:0% (negative) Her2:2+ (equivocal) Ki67:90% [id number]:Not amplified. 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 The above summary is in compliance with College of [place] Path[employer] (CAP) Cancer Protocols Checklist and [place] Joint Committee on Cancer (AJCC), Staging Manual, 8th Ed. Immunohistochemistry ([id number]) supports the above diagnosis. Case has been reviewed in consultation with Dr. Desir who concurs with the above diagnosis. IDC:SJ MICROSCOPIC DESCRIPTION Slides are reviewed. GROSS DESCRIPTION Received in fixative is one container labeled with the patient's name and designated Right breast tissue. The specimen consists of multiple elongated fragments of bryant-yellow fibroadipose tissue in aggregate 2.0 x 0.2 x 0.1cm. The entire specimen is submitted in one cassette. Subha 11/10/2023 TC:0 CPT:72818
--- NOTE | 2023-11-10 08:24 | PCM.OPRPT ---
Report of Operation Date of Procedure: 11/10/23 Pre-Operative Diagnosis: Right breast mass Post-Operative Diagnosis: Same Surgery/Procedure Performed:: Ultrasound-guided right breast biopsy Surgeon: Jane Blum Type of Anesthesia: Local Specimen's removed: Right breast mass Estimated Blood Loss (mL): <10 cc Description of Procedure: Reviewed the ultrasound and mammography with patient and discussed the need for biopsy. Reviewed the procedure of biopsy with a core biopsy device. A marker clip will be placed to identify the location. Patient has been counseled to the risks/benefits of the procedure. I have explained the risks of the surgery, including but not limited to: infection, bleeding, injury to any blood vessels/nerves, scar tissue, missing the lesion, further surgery, etc. - the patient understands and agrees to proceed. I have answered all of the patient's questions to her satisfaction and she has no further questions. Signed consent is completed. Procedure: ultrasound-guided core biopsy at bedside Description of procedure: Patient was brought into the ultrasound room in the right breast was marked. A timeout was completed verifying correct patient, procedure, site, specially, prior to beginning procedure. The right breast was prepped and draped in usual sterile fashion and using local anesthesia was obtained with 1% lidocaine with epi. Area for biopsy was chosen with that thickened overlying skin first area of exposed tumor. Small incision was made with 11 blade to introduced the BARD MaxCore through the skin. Under ultrasound guidance multiple core samples were obtained using then 14-gauge BARD MaxCore and sent in formalin for pathology. The Bard dual ultra-clip was then deployed into the biopsy cavity under ultrasound guidance. Upon completion procedure hemostasis was obtained and a Steri-Strip and pressure dressing with gauze and tape were placed. The patient tolerated the procedure well. Complications none Procedures Integumentary [id number]: [id number] Bx breast 1st lesion us imag
--- NOTE | 2023-11-10 08:26 | RAO.CON ---
Intake Vital Signs 11/09/23 10:57 11/09/23 11:57 11/09/23 13:00 11/09/23 14:53 11/09/23 15:00 11/09/23 15:08 11/09/23 16:08 11/09/23 16:51 11/09/23 17:08 11/09/23 17:08 11/09/23 17:17 11/09/23 19:30 11/09/23 19:30 11/09/23 20:38 11/09/23 21:40 11/09/23 21:55 11/09/23 21:55 11/09/23 22:55 11/09/23 23:40 11/10/23 00:01 11/10/23 00:16 11/10/23 01:16 11/10/23 01:50 11/10/23 02:05 11/10/23 03:16 11/10/23 03:16 11/10/23 08:28 11/10/23 08:30 Height 5 ft 6 in 5 ft 6 in 5 ft 6 in Weight: 162 lb 11.218 oz 142 lb 3.17 oz 153 lb 3.54 oz BMI 26.2 22.9 24.7 BP 188/95 H 174/84 H 166/82 H 166/82 H 180/88 H 122/80 H 167/94 H 152/82 H 140/74 H 150/79 H 140/74 H 143/67 H 143/67 H 133/81 H 131/71 H 139/67 H 131/71 H 138/65 H 136/68 H 138/84 H 138/84 H 150/92 H Position Supine Supine Supine Supine Semi-Fowlers Semi-Fowlers Semi-Fowlers Semi-Fowlers Semi-Fowlers Semi-Fowlers Semi-Fowlers Semi-Fowlers Semi-Fowlers Semi-Fowlers Semi-Fowlers Semi-Fowlers Respiration 20 H 20 H 17 19 H 25 H 17 17 18 18 18 18 18 18 18 18 18 18 18 17 18 18 16 Pulse 103 H 78 111 H 127 H 112 H 66 109 H 103 H 108 H 97 108 H 100 100 90 101 H 88 87 96 89 92 92 110 H Temp 98.2 F 98.4 F 98.5 F 98.4 F 98.7 F 97.8 F 99.6 F H 100.9 F H 99.6 F H 99.1 F 99.1 F 98.3 F 97.8 F 98.1 F 97.7 F L 97.2 F L 97.7 F L 97.7 F L 97.7 F L 99.6 F H Pulse Oximetry (%) 96 97 96 94 98 97 97 95 93 93 95 95 94 94 95 95 93 94 95 95 95 95 94 Intake Visit Reasons: ABLA, BREAST MASS Allergies promethazine (From Phenergan) Allergy (Intermediate, Verified 11/09/23 11:06) Other amoxicillin (From Augmentin) Allergy (Verified 11/09/23 11:06) Other clavulanic acid (From Augmentin) Allergy (Verified 11/09/23 11:06) Other Medications ?Medication ?Instructions ?Recorded ?Confirmed ?Type acetaminophen 500 mg tablet 1,000 mg PO Q2H PRN pain 11/09/23 11/09/23 History (Acetaminophen Extra Strength) aspirin 325 mg capsule 325 mg PO DAILY 11/09/23 11/09/23 History multivitamin (Daily Multi-Vitamin 1 tab PO DAILY 11/09/23 11/09/23 History tablet) zinc acetate 50 mg (zinc) capsule 50 mg PO DAILY 11/09/23 11/09/23 History (Galzin) Home Medications Acetaminophen (Acetaminophen 325 Mg Tablet) 650 mg PO Q4H PRN PRN PRN Reason: Fever, pain 1-1010 Last Admin: 11/09/23 21:20 Dose: 650 mg Al Hydroxide/Mg Hydroxide (Mag Hydrox/Al Hydrox/Simeth 30 Ml Udc) 30 ml PO Q6H PRN PRN PRN Reason: Gastric Burning Albuterol Sulfate (Albuterol 2.5 Mg/3 Ml Vial.Neb.) 2.5 mg INHALATION Q2H PRN PRN PRN Reason: Dyspnea, wheezing Calamine/Phenol (Menthol/Lanolin/Calamine/Znox 113 Gm Tube) 1 applic TOPICAL 4X/DAY NATALY; Protocol Last Admin: 11/09/23 21:21 Dose: 1 applic Famotidine (Famotidine 20 Mg Tablet) 20 mg PO BID NATALY Last Admin: 11/09/23 21:20 Dose: 20 mg Guaifenesin (Guaifenesin 10 Ml Udc (200mg/10ml)) 20 ml PO Q4H PRN PRN PRN Reason: COUGH Hydralazine HCl (Hydralazine 20 Mg/Ml Vial) 10 mg IV Q4H PRN PRN; Protocol PRN Reason: SBP > 160 Sodium Chloride () 1,000 mls @ 100 mls/hr IV .Q10H [facility] Last Infusion: 11/10/23 01:52 Dose: 100 mls/hr Sodium Chloride () 250 mls @ 15 mls/hr IV .[id number] PRN PRN Reason: Additional IVPB Infusion Sodium Chloride () 250 mls @ 15 mls/hr IV .[id number] PRN PRN Reason: Saline Flush Melatonin (Melatonin 3 Mg Tablet) 3 mg PO QHS PRN PRN PRN Reason: INSOMNIA Morphine Sulfate (Morphine 4 Mg/Ml Syringe) 4 mg IV Q4H PRN PRN PRN Reason: Pain Score 6-10 Last Admin: 11/09/23 17:46 Dose: 4 mg Morphine Sulfate (Morphine 4 Mg/Ml Syringe) 4 mg IV Q3H PRN PRN PRN Reason: Pain Score 6-10 Last Admin: 11/10/23 03:18 Dose: 4 mg Multivitamins (Multivitamins,Therapeutic Tablet) [facility] Nutritional Formula (Lactose Free) (Ensure Plus High Protein 120 Ml Liquid) 120 ml PO 4X/DAY [facility] Last Admin: 11/09/23 21:23 Dose: Not Given Ondansetron HCl (Ondansetron 4 Mg/2 Ml Vial) 4 mg IV Q8H PRN PRN PRN Reason: NAUSEA/VOMITING Oxycodone HCl (Oxycodone 5 Mg Tablet) 5 mg PO Q4H PRN PRN PRN Reason: Pain Score 4-10 Last Admin: 11/10/23 05:53 Dose: 5 mg Senna/Docusate Sodium (Senna/Docusate Sodium 1 Tablet) 2 tablet PO BID PRN PRN PRN Reason: Constipation Sodium Chloride (0.9% Saline Lock 10 Ml Syringe) 10 - 40 ml IV UD PRN PRN Reason: SALINE FLUSH Last Admin: 11/10/23 00:29 Dose: 10 ml Discontinued Medications Sodium Chloride () 500 mls @ 1,000 mls/hr IV .Q30M [facility] Stop: 11/09/23 12:29 Last Infusion: 11/09/23 14:54 Dose: Infused Sodium Chloride () 1,000 mls @ 999 mls/hr IV .Q1H1M ONE Stop: 11/09/23 18:11 Last Infusion: 11/09/23 19:02 Dose: Infused Morphine Sulfate (Morphine 4 Mg/Ml Syringe) 4 mg IV X1 ONE Stop: 11/09/23 11:48 Last Admin: 11/09/23 11:54 Dose: 4 mg Morphine Sulfate (Morphine 4 Mg/Ml Syringe) 4 mg IV X1 ONE Stop: 11/09/23 14:16 Last Admin: 11/09/23 14:36 Dose: 4 mg Ondansetron HCl (Ondansetron 4 Mg/2 Ml Vial) 4 mg IV X1 ONE Stop: 11/09/23 11:48 Last Admin: 11/09/23 11:55 Dose: 4 mg PFSH PFSH Medical History (Updated 11/09/23 @ 15:[address] Skylar Holbrook MD) HTN (hypertension) History of left breast cancer Home Medications ?Medication ?Instructions ?Recorded ?Last Taken ?Type acetaminophen 500 mg tablet 1,000 mg PO Q2H PRN pain 11/09/23 11/09/23 History (Acetaminophen Extra Strength) aspirin 325 mg capsule 325 mg PO DAILY 11/09/23 11/09/23 History multivitamin (Daily Multi-Vitamin 1 tab PO DAILY 11/09/23 11/09/23 History tablet) zinc acetate 50 mg (zinc) capsule 50 mg PO DAILY 11/09/23 11/09/23 History (Galzin) Allergy/AdvReac Type Severity Reaction Status Date / Time promethazine (From Phenergan) Allergy Intermediate Other Verified 11/09/23 11:06 amoxicillin (From Augmentin) Allergy Other Verified 11/09/23 11:06 clavulanic acid (From Allergy Other Verified 11/09/23 11:06 Augmentin) Family History (Updated 11/09/23 @ 15:[address] Skylar Holbrook MD) Mother Breast cancer Diagnoses in her 80s, unclear type of breast CA. Diabetes Father Diabetes Hypertension Heart disease Heart failure Surgical History S/P cholecystectomy S/P left mastectomy Social History (Updated 11/09/23 @ 15:[address] Skylar Holbrook MD) household members: none Smoking Status: Never smoker alcohol intake: never substance use type: does not use Referring Provider: Jane Blum MD Diagnosis: Sherri Cantrell is a 78 year-old female diagnosed with IIIB (cT4b cN2 M0) very likely right breast cancer (biopsy 11/10/2023) with a very large fungating mass status post CT brain with and without contrast (11/09/2023), and CT chest/abdomen/pelvis with contrast (11/09/2023). History of Present Illness: 1996: Completed left breast mastectomy for breast cancer, unknown details, no adjuvant treatment.? 11/09/2023: Patient presented to the emergency room with a bleeding breast mass and fatigue, found to have a hemoglobin of about 6.5 and given transfusion and admitted. This 11/09/2023: Brain CT with and without contrast was performed and this demonstrated involutional changes of the brain, no abnormalities consistent with metastatic disease. 11/09/2023: Patient completed CT chest/abdomen/pelvis with contrast.? There is a large 14.7 x 15.3 cm dense heterogeneous mass in the right breast extending into the right axilla with increased markings in the remainder of the breast and diffuse skin thickening. Radiation Treatment History: 1996: Completed left breast mastectomy for breast cancer, unknown details, no adjuvant treatment.? No prior history of radiation therapy. No pacemaker. No diagnosis of radiosensitizing comorbidity. Interval History: Patient was seen for inpatient consultation. She reports having a mass in the right breast that started around February 2023, this was under the skin surface, firm, not very painful, not bleeding and has steadily worsened over about the last 8 months. She did not seek medical care due to concerns about insurance but she was fairly confident there was a right-sided breast cancer. Over the last few days she had increasing tenderness in the area and starting yesterday had bleeding which was at times quite a bit of bleeding when she was in the emergency room. Bleeding has now been controlled and her hemoglobin was 6.5 and this is now been increased to about 8 after having 2 units of blood. She has had increased fatigue over the last couple of months. She denies cough, shortness of breath, bone pain, headaches, vision changes, focal weakness/numbness. Prior to coming into the hospital she was living at home alone and reports being able to care for herself, she is able to do chores around her house, cook, shower, dress, feed herself. She denies having other problems or concerns at this time. Review of Systems: A 12-point review of systems was completed and was negative except for what is noted in the HPI/Interval History and by the nurse. Physical Exam: Weight: 153 lbs ECO KARNOFSKY SCORE: 60% CONSTITUTIONAL: Well-developed, well-nourished, and in no apparent distress. NECK: Supple, no thyromegaly, and non-tender. Trachea midline. No cervical or supraclavicular adenopathy noted. CARDIAC: Regular rate and rhythm. Normal S1, S2. No murmurs, rubs, or gallops. PULMONARY/CHEST: Lungs are clear to auscultation and percussion bilaterally. No wheezes, rhonchi, or crackles noted. No increased work of breathing. BREAST: Within the right breast there is a very large mass in the outer portion, this mass measures about 15 cm and does appear to involve the skin. There is also some redness and skin thickening extending towards midline. Left mastectomy incision appears unremarkable. No clear axillary adenopathy is appreciated. NEUROLOGICAL EXAM: Alert and oriented x 3. Answers questions and follows commands appropriately. Cranial nerves II through XII are grossly intact. No focal neurological deficit. Speech is fluent. Muscle strength is 5/5 in all muscle groups. Gait and posture without abnormality. PSYCHIATRIC: Appropriate mood and affect for the clinical situation. Imaging: As per HPI Laboratory Data: Hgb: 11/08: 6.5; 11/09: 8.0 Assessment & Plan Assessment/Plan (1) Breast mass in female: PLAN: Plan Assessment: Sherri Cantrell is a 78 year-old female diagnosed with IIIB (cT4b cN2 M0) very likely right breast cancer (biopsy 11/10/2023) with a very large fungating mass status post CT brain with and without contrast (11/09/2023), and CT chest/abdomen/pelvis with contrast (11/09/2023). Plan: Patient was seen in the hospital as an inpatient consultation. She came into the hospital on 11/09/2023 due to having bleeding from her breast mass and also a history of worsening fatigue. She was found to have a hemoglobin of 6.5 and had blood transfusion and also had wound care to stop the bleeding. She does have a history significant for left-sided breast cancer which was treated with mastectomy in 1996 reportedly, no pathology is available for review, she denies ever having any adjuvant radiation, chemotherapy, hormone therapy. I reviewed the scans including CT chest/abdomen/pelvis completed 11/09/2023 but this demonstrates a very large right breast mass that appears to involve the skin.? There is also evidence for adenopathy which is very small extending up into the level 2/3 area which is somewhat obscured by ipsilateral contrast administration.? There is no clear evidence for distant metastatic disease.? Biopsy was completed today and is pending but I discussed with the patient that this is a breast malignancy, we did discuss the importance of the receptor status which will be determined. We also reviewed the option of palliative surgery with the surgery team but given the size of the mass as well as much of the skin thickening there is significant concern that closure will not be obtainable. It does appear that she has adenopathy extending into the upper axilla, this is fairly small volume and no clear evidence of metastatic disease, if she does have good palliation of the primary mass it is possible that she may build to undergo surgery and a more definitive treatment for her breast cancer but that is unclear at the moment and given the current situation palliative radiation therapy is likely the best initial approach. I discussed the logistics of palliative radiation therapy which would include CT simulation, treatment planning, and likely 5?10 fractions. The goals of therapy were reviewed and are to reduce pain, stop and prevent further bleeding, reduce risk of infection, and over time shrink and control the breast mass. The risk, benefits, and alternatives to palliative radiation therapy were reviewed and all questions were addressed. I did discuss the potential acute and chronic toxicities from palliative radiation therapy to the right breast and this would include but is not limited to fatigue, skin erythema/irritation, potential increase in breast discomfort, breast swelling, skin tanning/thickening, decreased right arm range of motion with some tightness, reduce strength of the right ribs resulting in some increased fracture risk, radiation pneumonitis, lung fibrosis in the treated area, and secondary carcinoma. I do believe that the benefits of treatment greatly outweigh the risks and I recommended palliative radiation. At the moment she would like to proceed with this treatment and we will plan to complete CT simulation in order to try to expedite treatment planning and initiation of radiation. The patient was instructed to call with any further questions or concerns in the interim. Thank you for allowing me to participate in the management and care of your patient. If I may answer any questions in the interim, please do not hesitate to contact me at any time. Patricio Mendes DO, MS Sprinkler Tender, Department of Radiation Oncology [facility]
--- NOTE | 2023-11-10 08:27 | PN.SURG_ITS ---
Subjective Subjective Patient complains of pain in the right breast otherwise denies any further bleeding overnight. Patient did get 2 units packed red blood cells. Objective Data Objective Data Vital Signs: Vital Signs Temp Pulse Resp BP Pulse Ox O2 Del Method 97.7 F L 92 18 138/84 H 95 Room Air 11/10/23 03:16 11/10/23 03:16 11/10/23 03:16 11/10/23 03:16 11/10/23 03:16 11/10/23 03:23 Oxygen Delivery Method Room Air Weight: 153 lb 3.54 oz Body Mass Index (BMI) 24.7 Intake & Output: Intake and Output for Last 24 Hours 11/08/23 11/09/23 11/10/23 23:59 23:59 23:59 Intake Total 1764.33 / 1764.33 Output Total 400 / 400 350 / 350 Balance 1364.33 / 1364.33 -349 / -349 Lab / Micro Data 11/10/23 06:36 11/10/23 03:07 Labs: Laboratory Results - last 24 hr 11/09/23 12:00: WBC 11.7 H, RBC 2.95 L, Hgb 6.6 L, Hct 23.9 L, MCV 81.0, MCH 22.4 L, MCHC 27.6 L, RDW Std Deviation 47.6 H, RDW Coeff of Mahad 16.1 H, Plt Count 667 H, MPV 8.8, Immature Gran % (Auto) 0.500, Neut % (Auto) 79.9 H, Lymph % (Auto) 12.7 L, [place] % (Auto) 6.5, Eos % (Auto) 0.1, Baso % (Auto) 0.3, A bsolute Neuts (auto) 9.4 H, Absolute Lymphs (auto) 1.48, Nucleated RBC % 0, Sodium 137, Potassium 3.5, Chloride 104, Carbon Dioxide 28.0, Anion Gap 5, BUN 15, Creatinine 0.54 L, Estim Creat Clear Calc 59.56, Est GFR (MDRD) Af Amer 141, Est GFR (MDRD) Non-Af 117, BUN/Creatinine Ratio 27.9 H, Glucose 178 H, Calcium 10.1, Phosphorus 2.4 L, Magnesium 2.1, Iron 15 L, TIBC 179 L, Iron Saturation 8.4 L, Ferritin 423 H, Total Bilirubin 0.30, AST 16, ALT 16, Alkaline Phosphatase 142 H, Total Protein 7.6, Albumin 1.8 L, Globulin 5.8 H, A lbumin/Globulin Ratio 0.3 L, Lipase 11 L 11/09/23 12:43: Blood Type O POSITIVE, Antibody Screen NEGATIVE, Crossmatch See Detail 11/09/23 12:43: Crossmatch See Detail 11/09/23 13:15: Urine Color Yellow, Urine Clarity Clear, Urine pH 5.0, Ur Specific [place] 1.020, Urine Protein 30 H, Urine Glucose (UA) Normal, Urine Ketones 5 H, Urine Occult Blood 10 H, Urine Nitrite Negative, Urine Bilirubin Negative, Urine Urobilinogen Normal, Ur Leukocyte Esterase Negative, Urine RBC 0 SEEN, Urine WBC 0 SEEN, Ur Squamous Epith Cells 0 SEEN, Urine Bacteria 0 SEEN, Urine Mucus 0 SEEN 11/09/23 18:55: Hgb 6.5 L, Hct 22.6 L 11/10/23 03:07: WBC 10.1, RBC 3.08 L, Hgb 7.5 L, Hct 25.7 L, MCV 83.4, MCH 24.4 L, MCHC 29.2 L D, RDW Std Deviation 47.8 H, RDW Coeff of Mahad 15.7 H, Plt Count 462 H, MPV 8.5, Immature Gran % (Auto) 0.300, Neut % (Auto) 69.4, Lymph % (Auto) 20.8, [place] % (Auto) 8.9, Eos % (Auto) 0.2, Baso % (Auto) 0.4, Absolute Neuts (auto) 7.0, Absolute Lymphs (auto) 2.10, Nucleated RBC % 0, Sodium 136, Potassium 3.5, Chloride 103, Carbon Dioxide 27.0, Anion Gap 6, BUN 10, C reatinine 0.33 L, Estim Creat Clear Calc 54.26, Est GFR (MDRD) Af Amer 248, Est GFR (MDRD) Non-Af 205, BUN/Creatinine Ratio 30.3 H, Glucose 147 H, Calcium 8.6, Total Bilirubin 0.50, AST 45 H, ALT 36, Alkaline Phosphatase 190 H, Total Protein 6.5, Albumin 1.6 L, Globulin 4.9 H, Albumin/Globulin Ratio 0.3 L 11/10/23 06:36: Hgb 8.0 L, Hct 28.0 L Radiography Diagnostic Testing: Radiology Impression Brain CT 11/09/23 11:47 IMPRESSION: Chronic involutional changes of the brain. 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 Small bilateral renal cysts. The patient is status post cholecystectomy. Electronically Signed: Arthur Inman MD at 13:22 EDT , Physical Exam Narrative Large fungating right breast mass about 20 x 20 cm?surgery form left over top of the previous area that was bleeding no bleeding overnight after a's was taken down. Const oriented x3 and no apparent distress Resp normal respiratory effort Cardio regular rate Assessment & Plan Assessment/Plan (1) Breast mass in female: (2) ABLA (acute blood loss anemia): PLAN: Plan Patient tolerated breast biopsy well at bedside. Hemostasis was achieved with pressure. Will leave the Surgifoam on the part of the tumor that has been bleeding as a likely rebleed if we remove it. 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 Dr. Mendes did come and talk with patient about getting palliative radiation to help with the bleeding. Jane Blum M.D. Pager: [phone] [facility] [address] [place] [address], Outpatient [place], [address] [place] [address] Office: [phone] Charges/Coding Visit Charges Inpatient E&M: 69938 Subs Hosp L2
--- NOTE | 2023-11-10 08:47 | WOUNDNOTE ---
wound photo: right breast
[2023-11-10] MEDS: 0.9% Normal Saline (1000mL) 1,000 ML 100 ML IV ×2 (09:08→22:13)
--- NOTE | 2023-11-10 11:30 | CASEMGMT ---
TRI GONZALES Assessment Face to Face with patient for initial transition planning/care coordination assessment. TRI GONZALES introduced self and role at [facility], pt voices understanding. Pt is A&Ox4 and is resting in bed and appears agitated but willing to answer this TRI GONZALES questions. Pt daughter and sister at bedside. Care providers, pharmacy, and demographics verified. Admitting dx: ABLA, Breast Mass PCP: NO PCP. Pt refused list offered. Specialists: Denies Preferred Pharmacy: [facility] Insurance: MCR A ONLY Prescription Benefit: Denies. Pt educated about Good Rx LNOK: Allan Richter (MARA), Alyssia Bernal (ADAN) Living Arrangements: Pt lives alone in a single story home with a BM but does not go down the steps as she has a FFSU ADLs/IADLs: Pt is in need of assistance. Pt neighbors and MARA Lemus are able to help Transportation: Pt recently stopped driving. Pt MARA, Sister, and Daughter are able to drive her DME: Pt denies DME at home. Pt could benefit from a walker but pt refuses this. Pt states I plan on dying at home while crawling. HHC/SNF: Denies Wound: Pt has a large mass on her Rt Breast that needs tending to. Pt refuses to go to the wound center or other OP clinics at this time. Pt?s goal: Return home Plan: 6-Click is 15. PT pending. Pt refuses SNF, HHC, OP therapy, CCN, and Pt link. Pt states that she plans to return home no matter what. Pt states that she would like information about a Living Will and POA. SW updated and to see the pt. CM/SW to follow pt in regard to safe DC from [facility]. Duane Leavitt RN, CM
[2023-11-10 13:17] LABS: Hematocrit 29.4 % (37-47); Hemoglobin 8.9 g/dL (12.0-15.0)
[2023-11-10] MEDS: Ensure Plus High Protein 120 ML LIQUID PO (14:21)
[2023-11-10] MEDS: Menthol/Lanolin/Calamine/Znox 113 GM Tube 1 APPLIC TOPICAL ×2 (14:21→21:55)
--- NOTE | 2023-11-10 16:54 | PCM.PN.HOSP ---
Reason for Visit Reason for Visit: Diagnoses Acute posthemorrhagic anemia (11/09/23) Unspecified lump in unspecified breast (11/09/23) Subjective Subjective Patient was seen and examined today, I talked with general surgery about her care, patient underwent a right breast biopsy today, I had a long discussion with the patient's sister and daughter were in the room while the patient was down getting marked for her radiation ports, patient has ignored her right breast mass chiefly due to concerns of money, family states the patient goes back and forth about wanting something done about it and not wanting anything done about it. She came back from getting her radiation ports marked off and patient appeared to be anxious and stated that she did not know whether she could go through with radiation, I told her that we were talking about probably 5 treatments. Patient states to this examiner that she does not want to undergo chemotherapy, I asked her if she wanted to talk with hospice and she said no. Patient would like to instead go home at the conclusion of this hospitalization. Family is worried because there is no one to take care of her and she is not taking care of herself at home. Objective Data Objective Data Vital Signs: Vital Signs Temp Pulse Resp BP Pulse Ox O2 Del Method 97.5 F L 81 16 126/79 H 96 Room Air 11/10/23 14:27 11/10/23 14:27 11/10/23 14:27 11/10/23 14:27 11/10/23 14:27 11/10/23 14:27 Oxygen Delivery Method Room Air Weight: 69.5 kg Body Mass Index (BMI) 24.7 Intake & Output: Intake and Output for Last 24 Hours 11/08/23 11/09/23 11/10/23 23:59 23:59 23:59 Intake Total 1764.33 / 1764.33 826.00 / 826.00 Output Total 400 / 400 350 / 350 Balance 1364.33 / 1364.33 476.00 / 476.00 Medical Nutrition Assessment Dietitian: Malnutrition Criteria Met Start: 11/10/23 14:02 Freq: Status: Active Protocol: Document 11/10/23 14:02 (Rec: 11/10/23 14:02 [id number]) Nutrition Malnutrition Evidence of Malnutrition Exists Yes Malnutrition (moderate): Chronic Evidenced By Suboptimal Energy Intake ( Moderate),Physical Changes ( Mild) Clinical Problem Chronic Disease or Condition Related Malnutrition Etiology moderate, chronic malnutrition related to inadequate energy intake w/ increased energy needs d/t fungating mass Signs/Symptoms as evidenced by mild muscle wasting/fat loss evident in orbital, clavicle, acromion, and temporal areas, estimated PO intake meeting <75% of estimated energy needs > 3 months Status Active Problem Recommendation Dietitian Recommendations/Changes continue regular diet, ensure plus high protein 120mL 4x/day w/ medpass Lab / Micro Data 11/10/23 12:57 11/10/23 03:07 Labs: Laboratory Results - last 24 hr 11/09/23 12:43: Crossmatch See Detail 11/09/23 12:43: Crossmatch See Detail 11/09/23 18:55: Hgb 6.5 L, Hct 22.6 L 11/10/23 03:07: WBC 10.1, RBC 3.08 L, Hgb 7.5 L, Hct 25.7 L, MCV 83.4, MCH 24.4 L, MCHC 29.2 L D, RDW Std Deviation 47.8 H, RDW Coeff of Mahad 15.7 H, Plt Count 462 H, MPV 8.5, Immature Gran % (Auto) 0.300, Neut % (Auto) 69.4, Lymph % (Auto) 20.8, [place] % (Auto) 8.9, Eos % (Auto) 0.2, Baso % (Auto) 0.4, Absolute Neuts (auto) 7.0, Absolute Lymphs (auto) 2.10, Nucleated RBC % 0, Sodium 136, Potassium 3.5, Chloride 103, Carbon Dioxide 27.0, Anion Gap 6, BUN 10, Creatinine 0.33 L, Estim Creat Clear Calc 54.26, Est GFR (MDRD) Af Amer 248, Est GFR (MDRD) Non-Af 205, BUN/Creatinine Ratio 30.3 H, Glucose 147 H, Calcium 8.6, Total Bilirubin 0.50, AST 45 H, ALT 36, Alkaline Phosphatase 190 H, Total Protein 6.5, Albumin 1.6 L, Globulin 4.9 H, Albumin/Globulin Ratio 0.3 L 11/10/23 06:36: Hgb 8.0 L, Hct 28.0 L 11/10/23 12:57: Hgb 8.9 L, Hct 29.4 L Physical Exam Const alert, oriented x3 and no apparent distress Constitutional Narrative: Patient appears anxious General Appearance: cooperative, well kempt and well developed Orientation / Consciousness: awake, oriented to person, oriented to place and oriented to time HEENT normocephalic, head/scalp atraumatic and moist oral mucous membranes Eyes PERRL, EOMs intact bilaterally and conjunctivae normal Neck supple, no JVD, thyroid normal and no carotid bruits General: trachea midline Resp normal respiratory effort, no retractions, no use of accessory muscles and clear to auscultation bilaterally Auscultation: Negative for rales, rhonchi or wheezes Cardio regular rate, regular rhythm, S1 normal heart sound, S2 normal heart sound, no murmurs, no rub and no gallops GI normal to inspection, nondistended, normoactive bowel sounds, soft to palpation, non-tender and non-distended Extremity no clubbing, cyanosis or edema Skin Skin Narrative: Patient has a large mass attached to her right lateral breast area, this was not examined completely. Neuro oriented x3, CN's II-XII intact bilaterally, moves all extremities, no focal motor deficits and no sensory deficits noted Sensorium / Orientation: awake and alert Speech: speech normal Psych Psych Narrative: Patient appears anxious Assessment & Plan Assessment/Plan (1) Breast mass in female: PLAN: Plan 1. Acute blood loss anemia from untreated carcinoma of the right breast-patient's latest hemoglobin appears stable, H&H will be repeated tomorrow morning #2 large right breast carcinoma-exact identification to follow, patient was set up for radiation starting tomorrow, she will have 5 treatments if she consents to this. Total clinical time spent by myself addressing the patient's medical issues, reviewing all of her data, and collaborating with patient's care team: 35 minutes Charges/Coding Visit Charges Inpatient E&M: 67793 Subs Hosp L2
[2023-11-10] MEDS: Ondansetron 4 MG/2 ML Vial IV (21:32)
[2023-11-10 21:33] LABS: Bedside Glucose 166 mg/dL (74-106)
--- NOTE | 2023-11-10 21:52 | PCM.PN.BLA ---
Progress Note Paged by nursing that patient had experienced bleeding when trying to get up and about by herself. They reported that they had taken measures to try to stem the bleeding. They felt as though the bleeding had likely stopped but could not confirm. Therefore, I presented to patient's bedside and found her on dressed but a Chris bandage wrapped around her upper torso without strikethrough. There was evidence of recent bleeding on patient's bedding as well as along her right flank. Nursing confirms the patient's vitals have remained stable. Dressing was taken down and I found no evidence of ongoing bleeding. Several 2 x 2 size pieces of Surgifoam were placed over the areas that were most raw laterally and then an abdominal pad was placed atop these pieces of Surgifoam. The ensemble is held in place with two 4 inch Chris bandages wrapped semitightly to provide both lift and compression on the area. Given patient's hemodynamic stability and him CBC and coags were ordered.
[2023-11-10] MEDS: Famotidine 20 MG Tablet PO (21:55)
[2023-11-10] MEDS: Acetaminophen 325 MG Tablet 650 MG PO (23:54)
[2023-11-11] VITALS (12 sets, daily range): BP systolic 100–159; BP diastolic 51–86; PULSE 87–125; RESP 16–20; TEMP 36.4–39.4; O2SAT 91–100; BMI 24.2
--- NOTE | 2023-11-11 00:55 | NURSING ---
Daughter called and notified that pt is refusing ordered blood transfusion, medication, vitals, and supplemental oxygen. Daughter notified that pt states wanting to go home and , and daughter is unable to visit pt and contacts sister in law to visit instead.
[2023-11-11] MEDS: oxyCODONE 5 MG Tablet PO ×3 (04:02→16:00)
[2023-11-11] MEDS: Acetaminophen 325 MG Tablet 650 MG PO ×4 (04:03→19:20)
[2023-11-11] MEDS: 0.9% Normal Saline (1000mL) 1,000 ML 100 ML IV (06:51)
[2023-11-11 06:59] LABS: Absolute Lymphocyte Count 1.53 X10^3/uL (0.83-4.51); Absolute Neutrophil Count 7.4 X10^3/uL (2.0-7.7); Basophil# 0.03 X10^3/uL; Basophil% 0.3 % (0-1); Eosinophil# 0.02 X10^3/uL; Eosinophils% 0.2 % (0-5); Hemoglobin 6.8 g/dL (12.0-15.0); Lymphocyte # 1.53 X10^3/ul (0.83-4.51); Lymphocyte % 15.4 % (19-41); Mean Corp Hgb Conc 29.6 g/dL (32-36); Mean Corpuscular Hgb 24.6 pg (27.0-32.0); Mean Corpuscular Volume 83.3 fL (81-99); Mean Platelet Vol. 8.7 fl (6.2-12.0); Monocyte# 0.94 X10^3/uL; Monocyte% 9.5 % (0-10); NRBC Flagged by Analyzer 0 % (0-5); Neutrophil # 7.37 X10^3/uL (2.7-7.7); Neutrophil % 74.1 % (47-70); Platelet Count 426 K/mm3 (150-450); RBC Distribution Width CV 16.2 % (11.6-14.6); RBC Distribution Width SD 48.9 fl (35.1-43.9); Red Blood Count 2.76 M/mm3 (4.2-5.4); White Blood Count 9.9 K/mm3 (4.4-11.0)
[2023-11-11 07:25] LABS: International Normalized Ratio 1.5
[2023-11-11 07:26] LABS: Partial Thromboplast Time 45.7 Seconds (24.1-36.2)
[2023-11-11] MEDS: Menthol/Lanolin/Calamine/Znox 113 GM Tube 1 APPLIC TOPICAL (08:34)
[2023-11-11] MEDS: Multivitamins,Therapeutic Tablet 1 TABLET PO (08:34)
[2023-11-11] MEDS: Famotidine 20 MG Tablet PO (08:34)
--- NOTE | 2023-11-11 09:32 | PCM.PN.SRG ---
Subjective Subjective Patient did have some bleeding from the tumor last night Dr. Chirinos was called, nursing had already put on more Surgifoam. Patient did have her radiation planning but states she was having pain during that session is unsure if she wants to continue. Objective Data Objective Data Vital Signs: Vital Signs Temp Pulse Resp BP Pulse Ox O2 Del Method O2 Flow Rate 97.5 F L 96 16 136/84 H 98 Room Air 2 11/11/23 08:41 11/11/23 08:41 11/11/23 08:41 11/11/23 08:41 11/11/23 08:41 11/11/23 08:41 11/10/23 21:30 Oxygen Flow Rate (L/min) 2 Oxygen Delivery Method Room Air Weight: 150 lb 2.157 oz Body Mass Index (BMI) 24.2 Intake & Output: Intake and Output for Last 24 Hours 11/09/23 11/10/23 11/11/23 23:59 23:59 23:59 Intake Total 1764.33 / 1764.33 2122.67 / 2122.67 863.33 / 863.33 Output Total 400 / 400 350 / 350 200 / 200 Balance 1364.33 / 1364.33 1772.67 / 1772.67 663.33 / 663.33 Medical Nutrition Assessment Dietitian: Malnutrition Criteria Met Start: 11/10/23 14:02 Freq: Status: Active Protocol: Document 11/10/23 14:02 (Rec: 11/10/23 14:02 [id number]) Nutrition Malnutrition Evidence of Malnutrition Exists Yes Malnutrition (moderate): Chronic Evidenced By Suboptimal Energy Intake ( Moderate),Physical Changes ( Mild) Clinical Problem Chronic Disease or Condition Related Malnutrition Etiology moderate, chronic malnutrition related to inadequate energy intake w/ increased energy needs d/t fungating mass Signs/Symptoms as evidenced by mild muscle wasting/fat loss evident in orbital, clavicle, acromion, and temporal areas, estimated PO intake meeting <75% of estimated energy needs > 3 months Status Active Problem Recommendation Dietitian Recommendations/Changes continue regular diet, ensure plus high protein 120mL 4x/day w/ medpass Lab / Micro Data 11/11/23 06:05 11/10/23 03:07 Labs: Laboratory Results - last 24 hr 11/10/23 12:57: Hgb 8.9 L, Hct 29.4 L 11/10/23 21:14: POC Glucose 166 H 11/11/23 06:05: WBC 9.9, RBC 2.76 L, Hgb 6.8 L, Hct 23.0 L, MCV 83.3, MCH 24.6 L, MCHC 29.6 L, RDW Std Deviation 48.9 H, RDW Coeff of Mahad 16.2 H, Plt Count 426, MPV 8.7, Immature Gran % (Auto) 0.500, Neut % (Auto) 74.1 H, Lymph % (Auto) 15.4 L, [place] % (Auto) 9.5, Eos % (Auto) 0.2, Baso % (Auto) 0.3, Absolute Neuts (auto) 7.4, Absolute Lymphs (auto) 1.53, Nucleated RBC % 0, PT 18.0 H, INR 1.5, APTT 45.7 H Physical Exam Narrative Large fungating right breast mass about 20 x 20 cm?surgiform left over top of the previous area that was bleeding no bleeding overnight after bay was taken down. Const oriented x3 and no apparent distress Resp normal respiratory effort Cardio regular rate Assessment & Plan Assessment/Plan (1) Breast mass in female: (2) ABLA (acute blood loss anemia): PLAN: Plan Did discuss with patient and encouraged her to consider continue with radiation treatment to try to decrease the risk of bleeding of this area as surgery is not really a good option as should be left with a large wound. Dr. Mendes will talk to pt today but per Dr. Mendes pt could have first radiation treatment today if agreeable. Hb 6.8 from 8.9 (which may have been falsely elevated too, was 6.6 and only got 2 units & had bleeding in ER I think after 6.6 lab was drawn) Jane Blum M.D. Pager: [phone] [facility] [address] [place] [address], Outpatient [place], [address] [place] [address] Office: [phone] Charges/Coding Visit Charges Inpatient E&M: 78643 Subs Hosp L2
[2023-11-11] MEDS: HYDROmorphone 1 MG/ML Syringe IV (12:55)
[2023-11-11] MEDS: LORazepam 2 MG/ML Syringe 1 MG IV (12:55)
[2023-11-11] MEDS: 0.9% Saline Lock 10 ML Syringe IV (12:55)
--- NOTE | 2023-11-11 13:12 | PCM.PN.HOSP ---
Reason for Visit Reason for Visit: Diagnoses Acute posthemorrhagic anemia (11/09/23) Unspecified lump in unspecified breast (11/09/23) Subjective Subjective Patient was seen and examined today, her hemoglobin was low this morning, I spent some time talking with her and her sister who was in the room at the time of my examination. Patient was concerned that she was going to have pain when she went over for radiation treatment today due to manipulation of the tumor area on her right breast, I told her I would give her pain medications before she is transported over to radiation. Patient is concerned that the bleeding in her right breast while stopped with the radiation, I told her that the only other option would probably be to consider mastectomy to the area which she states she would not do. She also again refused any hospice consult or transfer to the inpatient hospice unit. Patient told me that she was worried about taking care of herself if she continued to have bleeding and then approximately 5 minutes later in the same conversation she stated that she just wanted to go home and take care of herself and that she thought she could care for herself. Objective Data Objective Data Vital Signs: Vital Signs Temp Pulse Resp BP Pulse Ox O2 Del Method O2 Flow Rate 97.5 F L 96 16 136/84 H 98 Room Air 2 11/11/23 08:41 11/11/23 08:41 11/11/23 08:41 11/11/23 08:41 11/11/23 08:41 11/11/23 08:41 11/10/23 21:30 Oxygen Flow Rate (L/min) 2 Oxygen Delivery Method Room Air Weight: 68.1 kg Body Mass Index (BMI) 24.2 Intake & Output: Intake and Output for Last 24 Hours 11/09/23 11/10/23 11/11/23 23:59 23:59 23:59 Intake Total 1764.33 / 1764.33 2122.67 / 2122.67 863.33 / 863.33 Output Total 400 / 400 350 / 350 200 / 200 Balance 1364.33 / 1364.33 1772.67 / 1772.67 663.33 / 663.33 Medical Nutrition Assessment Dietitian: Malnutrition Criteria Met Start: 11/10/23 14:02 Freq: Status: Active Protocol: Document 11/10/23 14:02 (Rec: 11/10/23 14:02 AG [id number]) Nutrition Malnutrition Evidence of Malnutrition Exists Yes Malnutrition (moderate): Chronic Evidenced By Suboptimal Energy Intake ( Moderate),Physical Changes ( Mild) Clinical Problem Chronic Disease or Condition Related Malnutrition Etiology moderate, chronic malnutrition related to inadequate energy intake w/ increased energy needs d/t fungating mass Signs/Symptoms as evidenced by mild muscle wasting/fat loss evident in orbital, clavicle, acromion, and temporal areas, estimated PO intake meeting <75% of estimated energy needs > 3 months Status Active Problem Recommendation Dietitian Recommendations/Changes continue regular diet, ensure plus high protein 120mL 4x/day w/ medpass Lab / Micro Data 11/11/23 06:05 11/10/23 03:07 Labs: Laboratory Results - last 24 hr 11/10/23 12:57: Hgb 8.9 L, Hct 29.4 L 11/10/23 21:14: POC Glucose 166 H 11/11/23 06:05: WBC 9.9, RBC 2.76 L, Hgb 6.8 L, Hct 23.0 L, MCV 83.3, MCH 24.6 L, MCHC 29.6 L, RDW Std Deviation 48.9 H, RDW Coeff of Mahad 16.2 H, Plt Count 426, MPV 8.7, Immature Gran % (Auto) 0.500, Neut % (Auto) 74.1 H, Lymph % (Auto) 15.4 L, [place] % (Auto) 9.5, Eos % (Auto) 0.2, Baso % (Auto) 0.3, Absolute Neuts (auto) 7.4, Absolute Lymphs (auto) 1.53, Nucleated RBC % 0, PT 18.0 H, INR 1.5, APTT 45.7 H Physical Exam Narrative alert, oriented x3 and no apparent distress Constitutional Narrative: Patient appears anxious General Appearance: cooperative, well kempt and well developed Orientation / Consciousness: awake, oriented to person, oriented to place and oriented to time HEENT normocephalic, head/scalp atraumatic and moist oral mucous membranes, patient is supplied some sort of paint to her scalp due to hair loss Eyes PERRL, EOMs intact bilaterally and conjunctivae normal Neck supple, no JVD, thyroid normal and no carotid bruits General: trachea midline Resp normal respiratory effort, no retractions, no use of accessory muscles and clear to auscultation bilaterally Auscultation: Negative for rales, rhonchi or wheezes Cardio regular rate, regular rhythm, S1 normal heart sound, S2 normal heart sound, no murmurs, no rub and no gallops GI normal to inspection, nondistended, normoactive bowel sounds, soft to palpation, non-tender and non-distended Extremity no clubbing, cyanosis or edema Skin Skin Narrative: Patient has a large mass attached to her right lateral breast area, this was not examined completely. Neuro oriented x3, CN's II-XII intact bilaterally, moves all extremities, no focal motor deficits and no sensory deficits noted Sensorium / Orientation: awake and alert Speech: speech normal Psych Psych Narrative: Patient appears anxious Assessment & Plan Assessment/Plan (1) Breast mass in female: PLAN: Plan 1. Acute blood loss anemia from untreated carcinoma of the right breast-I will transfuse the patient 2 units of packed red blood cells today and repeat her CBC in the morning #2 large right breast carcinoma-exact identification to follow, patient was set up for radiation starting today, she will need approximately 5 treatments according to radiation oncology. Total clinical time spent by myself addressing the patient's medical issues, reviewing all of her data, and collaborating with patient's care team: 35 minutes Charges/Coding Visit Charges Inpatient E&M: 07684 Subs Hosp L2
--- NOTE | 2023-11-11 13:34 | CASEMGMT ---
SW went to patient's room to talk with her about advance directives and mental health. Patient was out of the room. SW will check back with patient as time allows. Patricia FERMIN
[2023-11-11] MEDS: Morphine 4 MG/ML Syringe IV (18:19)
[2023-11-11] MEDS: Metoprolol Tartrate 25 MG Tablet PO (19:01)
--- NOTE | 2023-11-11 20:15 | NURSING ---
Pt informed nurse does not want next unit of blood started now, also stated not to be bothered at this time.
[2023-11-12] VITALS (10 sets, daily range): BP systolic 119–152; BP diastolic 61–84; PULSE 77–103; RESP 14–20; TEMP 36.7–37.8; O2SAT 95–99; BMI 24.2
[2023-11-12] MEDS: Meropenem 1 GM in 0.9% Normal Saline (100mL MB+) 100 ML IV ×4 (00:10→21:46)
[2023-11-12] MEDS: oxyCODONE 5 MG Tablet PO ×5 (00:13→21:44)
[2023-11-12] MEDS: Famotidine 20 MG Tablet PO ×3 (00:13→21:46)
[2023-11-12] MEDS: Ensure Plus High Protein 120 ML LIQUID PO ×2 (00:13→14:08)
[2023-11-12] MEDS: Acetaminophen 325 MG Tablet 650 MG PO ×5 (00:13→21:44)
[2023-11-12] MEDS: Menthol/Lanolin/Calamine/Znox 113 GM Tube 1 APPLIC TOPICAL ×4 (00:16→21:45)
--- NOTE | 2023-11-12 00:40 | NURSING ---
Pt refused offer to have a second IV site in order to infuse blood tonight. States that it will just have to wait until the antibiotic is finished.
[2023-11-12] MEDS: 0.9% Saline Lock 10 ML Syringe IV ×3 (04:22→11:00)
--- NOTE | 2023-11-12 08:54 | PN.SURG_ITS ---
Subjective Subjective Patient did get 2 units packed red blood cells yesterday and also got initial treatment of radiation. Patient initially had some bleeding when they took down the dressing to start the radiation?Surgifoam was placed patient had no further bleeding overnight Objective Data Objective Data Vital Signs: Vital Signs Temp Pulse Resp BP Pulse Ox O2 Del Method O2 Flow Rate 98.0 F 77 16 138/83 H 96 Room Air 2 11/12/23 06:46 11/12/23 06:46 11/12/23 06:46 11/12/23 06:46 11/12/23 06:46 11/12/23 06:46 11/11/23 20:00 Oxygen Flow Rate (L/min) 2 Oxygen Delivery Method Room Air Weight: 150 lb 2.157 oz Body Mass Index (BMI) 24.2 Intake & Output: Intake and Output for Last 24 Hours 11/10/23 11/11/23 11/12/23 23:59 23:59 23:59 Intake Total 2122.67 / 2122.67 1517.66 / 1517.66 121 / 121 Output Total 350 / 350 350 / 350 75 / 75 Balance 1772.67 / 1772.67 1167.66 / 1167.66 46 / 46 Medical Nutrition Assessment Dietitian: Malnutrition Criteria Met Start: 11/10/23 14:02 Freq: Status: Active Protocol: Document 11/10/23 14:02 (Rec: 11/10/23 14:02 [id number]) Nutrition Malnutrition Evidence of Malnutrition Exists Yes Malnutrition (moderate): Chronic Evidenced By Suboptimal Energy Intake ( Moderate),Physical Changes ( Mild) Clinical Problem Chronic Disease or Condition Related Malnutrition Etiology moderate, chronic malnutrition related to inadequate energy intake w/ increased energy needs d/t fungating mass Signs/Symptoms as evidenced by mild muscle wasting/fat loss evident in orbital, clavicle, acromion, and temporal areas, estimated PO intake meeting <75% of estimated energy needs > 3 months Status Active Problem Recommendation Dietitian Recommendations/Changes continue regular diet, ensure plus high protein 120mL 4x/day w/ medpass Lab / Micro Data 11/11/23 06:05 11/10/23 03:07 Labs: Laboratory Results - last 24 hr 11/09/23 12:43: Crossmatch See Detail Physical Exam Narrative Large fungating right breast mass about 20 x 20 cm?surgiform left over top of the previous area that was bleeding no bleeding overnight Const oriented x3 and no apparent distress Resp normal respiratory effort Cardio regular rate Assessment & Plan Assessment/Plan (1) Breast mass in female: (2) ABLA (acute blood loss anemia): PLAN: Plan Plan is for patient to get another session of radiation on Tuesday. Continue to monitor for any bleeding currently controlled. Labs pending patient did get 2 units packed red blood cells yesterday due to drop in hemoglobin to 6.8. Jane Blum M.D. Pager: [phone] [facility] [address] [place] [address], Outpatient [place], [address] [place] [address] Office: [phone] Charges/Coding Visit Charges Inpatient E&M: 06191 Subs Hosp L2
[2023-11-12 09:22] LABS: Absolute Lymphocyte Count 1.43 X10^3/uL (0.83-4.51); Absolute Neutrophil Count 9.9 X10^3/uL (2.0-7.7); Basophil# 0.01 X10^3/uL; Basophil% 0.1 % (0-1); Eosinophil# 0.02 X10^3/uL; Eosinophils% 0.2 % (0-5); Hemoglobin 8.7 g/dL (12.0-15.0); Lymphocyte # 1.43 X10^3/ul (0.83-4.51); Lymphocyte % 11.7 % (19-41); Mean Corpuscular Hgb 25.4 pg (27.0-32.0); Mean Corpuscular Volume 84.8 fL (81-99); Mean Platelet Vol. 8.6 fl (6.2-12.0); Monocyte# 0.84 X10^3/uL; Monocyte% 6.9 % (0-10); NRBC Flagged by Analyzer 0 % (0-5); Neutrophil % 80.7 % (47-70); Platelet Count 450 K/mm3 (150-450); RBC Distribution Width CV 15.9 % (11.6-14.6); RBC Distribution Width SD 48.9 fl (35.1-43.9); Red Blood Count 3.42 M/mm3 (4.2-5.4); White Blood Count 12.3 K/mm3 (4.4-11.0)
--- NOTE | 2023-11-12 10:15 | CASEMGMT ---
Social Work SW met w/pt, offered support. SW attempted to encourage pt to consider Medicaid, pt states she will not go on Medicaid, won't take a handout. SW attempted to reframe w/pt that she has been paying into the system for years. Pt still adamantly refuses. Pt states they can take her house, she will not do it though, will not take handouts. Pt also brought up hospice, states she will not do hospice either, just wants to go home. She states her mother and her dariela were both on hospice and both alone. She will not reconsider hospice either. Pt explained she is to get 5 radiation treatments total and she is to go home on Tuesday. She states will not do chemotherapy. She states that she found the tumor in February but did not do anything about it. She states she had a mastectomy 50 years ago, had lymph nodes also removed. At that time she did not have any chemo or radiation at that time. She states after this, her left her. Support offered. Pt states she does have a good support system including her daughter, brother in law and sister in law, and neighbors. SW remains available for support to pt if needed. BEE Morales
[2023-11-12] MEDS: Multivitamins,Therapeutic Tablet 1 TABLET PO (10:55)
[2023-11-12] MEDS: Metoprolol Tartrate 25 MG Tablet PO ×2 (10:55→21:46)
--- NOTE | 2023-11-12 18:00 | PCM.PN.HOSP ---
Reason for Visit Reason for Visit: Diagnoses Acute posthemorrhagic anemia (11/09/23) Unspecified lump in unspecified breast (11/09/23) Subjective Subjective Patient was seen and examined today, her hemoglobin is 8.7, white blood cell count was 12.3 this morning. Patient is currently afebrile, I talked with her about applying for Medicaid-she says her daughter is going to take care of it for her. family services specialist however told me that the patient refused to apply for Medicaid stating it was welfare. Objective Data Objective Data Vital Signs: Vital Signs Temp Pulse Resp BP Pulse Ox O2 Del Method O2 Flow Rate 99.1 F 103 H 16 151/65 H 99 Room Air 2 11/12/23 16:57 11/12/23 16:57 11/12/23 16:57 11/12/23 16:57 11/12/23 16:57 11/12/23 16:57 11/11/23 20:00 Oxygen Flow Rate (L/min) 2 Oxygen Delivery Method Room Air Weight: 68.1 kg Body Mass Index (BMI) 24.2 Intake & Output: Intake and Output for Last 24 Hours 11/10/23 11/11/23 11/12/23 23:59 23:59 23:59 Intake Total 2122.67 / 2122.67 1517.66 / 1517.66 741 / 741 Output Total 350 / 350 350 / 350 275 / 275 Balance 1772.67 / 1772.67 1167.66 / 1167.66 466 / 466 Medical Nutrition Assessment Dietitian: Malnutrition Criteria Met Start: 11/10/23 14:02 Freq: Status: Active Protocol: Document 11/10/23 14:02 (Rec: 11/10/23 14:02 [id number]) Nutrition Malnutrition Evidence of Malnutrition Exists Yes Malnutrition (moderate): Chronic Evidenced By Suboptimal Energy Intake ( Moderate),Physical Changes ( Mild) Clinical Problem Chronic Disease or Condition Related Malnutrition Etiology moderate, chronic malnutrition related to inadequate energy intake w/ increased energy needs d/t fungating mass Signs/Symptoms as evidenced by mild muscle wasting/fat loss evident in orbital, clavicle, acromion, and temporal areas, estimated PO intake meeting <75% of estimated energy needs > 3 months Status Active Problem Recommendation Dietitian Recommendations/Changes continue regular diet, ensure plus high protein 120mL 4x/day w/ medpass Lab / Micro Data 11/12/23 09:05 11/10/23 03:07 Labs: Laboratory Results - last 24 hr 11/09/23 12:43: Crossmatch See Detail 11/12/23 09:05: WBC 12.3 H, RBC 3.42 L, Hgb 8.7 L, Hct 29.0 L, MCV 84.8, MCH 25.4 L, MCHC 30.0 L, RDW Std Deviation 48.9 H, RDW Coeff of Mahad 15.9 H, Plt Count 450, MPV 8.6, Immature Gran % (Auto) 0.400, Neut % (Auto) 80.7 H, Lymph % (Auto) 11.7 L, [place] % (Auto) 6.9, Eos % (Auto) 0.2, Baso % (Auto) 0.1, Absolute Neuts (auto) 9.9 H, Absolute Lymphs (auto) 1.43, Nucleated RBC % 0 Physical Exam Narrative alert, oriented x3 and no apparent distress Constitutional Narrative: Patient appears anxious General Appearance: cooperative, well kempt and well developed Orientation / Consciousness: awake, oriented to person, oriented to place and oriented to time HEENT normocephalic, head/scalp atraumatic and moist oral mucous membranes, patient is supplied some sort of paint to her scalp due to hair loss Eyes PERRL, EOMs intact bilaterally and conjunctivae normal Neck supple, no JVD, thyroid normal and no carotid bruits General: trachea midline Resp normal respiratory effort, no retractions, no use of accessory muscles and clear to auscultation bilaterally Auscultation: Negative for rales, rhonchi or wheezes Cardio regular rate, regular rhythm, S1 normal heart sound, S2 normal heart sound, no murmurs, no rub and no gallops GI normal to inspection, nondistended, normoactive bowel sounds, soft to palpation, non-tender and non-distended Extremity no clubbing, cyanosis or edema Skin Skin Narrative: Patient has a large mass attached to her right lateral breast area, this was not examined completely. Neuro oriented x3, CN's II-XII intact bilaterally, moves all extremities, no focal motor deficits and no sensory deficits noted Sensorium / Orientation: awake and alert Speech: speech normal Psych Psych Narrative: Patient appears anxious Assessment & Plan Assessment/Plan (1) Breast mass in female: PLAN: Plan 1. Acute blood loss anemia from untreated carcinoma of the right breast-labs will be repeated tomorrow. 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 #3 chronic moderate protein and caloric malnutrition-related to inadequate energy intake with increased energy needs due to breast mass as evidenced by mild muscle wasting/fat loss evident in the orbital, clavicular, acromion, and temporal areas. Estimated p.o. intake meeting less than 75% of estimated energy needs over 3 months-continue regular diet, Ensure plus high-protein 120 cc 4 times a day with [facility], nutritional services is participating in her care Total clinical time spent by myself addressing the patient's medical issues, reviewing all of her data, and collaborating with patient's care team: 35 minutes Charges/Coding Visit Charges Inpatient E&M: 21194 Subs Hosp L2
[2023-11-13] VITALS (16 sets, daily range): BP systolic 117–147; BP diastolic 61–93; PULSE 74–99; RESP 16–18; TEMP 36.7–38.3; O2SAT 95–99; BMI 27.1
[2023-11-13] MEDS: oxyCODONE 5 MG Tablet PO ×3 (03:32→15:35)
[2023-11-13] MEDS: Acetaminophen 325 MG Tablet 650 MG PO ×3 (03:33→15:35)
[2023-11-13] MEDS: Meropenem 1 GM in 0.9% Normal Saline (100mL MB+) 100 ML IV ×3 (05:34→21:44)
[2023-11-13 06:23] LABS: Absolute Lymphocyte Count 0.83 X10^3/uL (0.83-4.51); Absolute Neutrophil Count 11.3 X10^3/uL (2.0-7.7); Basophil# 0.03 X10^3/uL; Basophil% 0.2 % (0-1); Eosinophil# 0.01 X10^3/uL; Eosinophils% 0.1 % (0-5); Hematocrit 25.6 % (37-47); Hemoglobin 7.6 g/dL (12.0-15.0); Lymphocyte # 0.83 X10^3/ul (0.83-4.51); Lymphocyte % 6.3 % (19-41); Mean Corp Hgb Conc 29.7 g/dL (32-36); Mean Corpuscular Hgb 25.1 pg (27.0-32.0); Mean Corpuscular Volume 84.5 fL (81-99); Monocyte# 0.84 X10^3/uL; Monocyte% 6.4 % (0-10); NRBC Flagged by Analyzer 0 % (0-5); Neutrophil # 11.31 X10^3/uL (2.7-7.7); Neutrophil % 86.4 % (47-70); Platelet Count 465 K/mm3 (150-450); RBC Distribution Width CV 16.2 % (11.6-14.6); RBC Distribution Width SD 49.9 fl (35.1-43.9); Red Blood Count 3.03 M/mm3 (4.2-5.4); White Blood Count 13.1 K/mm3 (4.4-11.0)
[2023-11-13] MEDS: Famotidine 20 MG Tablet PO ×2 (08:41→21:44)
[2023-11-13] MEDS: Multivitamins,Therapeutic Tablet 1 TABLET PO (08:41)
[2023-11-13] MEDS: Metoprolol Tartrate 25 MG Tablet PO ×2 (08:41→21:44)
[2023-11-13] MEDS: Menthol/Lanolin/Calamine/Znox 113 GM Tube 1 APPLIC TOPICAL ×4 (08:42→21:44)
[2023-11-13] MEDS: Morphine 4 MG/ML Syringe IV (08:47)
--- NOTE | 2023-11-13 08:53 | PN.SURG_ITS ---
Subjective Subjective Patient had no bleeding overnight. Patient's hemoglobin 7.6 from 8.7 Objective Data Objective Data Vital Signs: Vital Signs Temp Pulse Resp BP Pulse Ox O2 Del Method O2 Flow Rate 98.1 F 97 18 147/81 H 98 Room Air 2 11/13/23 08:34 11/13/23 08:34 11/13/23 08:34 11/13/23 08:34 11/13/23 08:34 11/13/23 08:34 11/11/23 20:00 Oxygen Flow Rate (L/min) 2 Oxygen Delivery Method Room Air Weight: 168 lb 6.931 oz Body Mass Index (BMI) 27.1 Intake & Output: Intake and Output for Last 24 Hours 11/11/23 11/12/23 11/13/23 23:59 23:59 23:59 Intake Total 1517.66 / 1517.66 1361 / 1361 120 / 120 Output Total 350 / 350 875 / 875 550 / 550 Balance 1167.66 / 1167.66 486 / 486 -430 / -430 Medical Nutrition Assessment Dietitian: Malnutrition Criteria Met Start: 11/10/23 14:02 Freq: Status: Active Protocol: Document 11/10/23 14:02 (Rec: 11/10/23 14:02 [id number]) Nutrition Malnutrition Evidence of Malnutrition Exists Yes Malnutrition (moderate): Chronic Evidenced By Suboptimal Energy Intake ( Moderate),Physical Changes ( Mild) Clinical Problem Chronic Disease or Condition Related Malnutrition Etiology moderate, chronic malnutrition related to inadequate energy intake w/ increased energy needs d/t fungating mass Signs/Symptoms as evidenced by mild muscle wasting/fat loss evident in orbital, clavicle, acromion, and temporal areas, estimated PO intake meeting <75% of estimated energy needs > 3 months Status Active Problem Recommendation Dietitian Recommendations/Changes continue regular diet, ensure plus high protein 120mL 4x/day w/ medpass Lab / Micro Data 11/13/23 05:40 11/10/23 03:07 Labs: Laboratory Results - last 24 hr 11/12/23 09:05: WBC 12.3 H, RBC 3.42 L, Hgb 8.7 L, Hct 29.0 L, MCV 84.8, MCH 25.4 L, MCHC 30.0 L, RDW Std Deviation 48.9 H, RDW Coeff of Mahad 15.9 H, Plt Count 450, MPV 8.6, Immature Gran % (Auto) 0.400, Neut % (Auto) 80.7 H, Lymph % (Auto) 11.7 L, [place] % (Auto) 6.9, Eos % (Auto) 0.2, Baso % (Auto) 0.1, Absolute Neuts (auto) 9.9 H, Absolute Lymphs (auto) 1.43, Nucleated RBC % 0 11/13/23 05:40: WBC 13.1 H, RBC 3.03 L, Hgb 7.6 L, Hct 25.6 L, MCV 84.5, MCH 25.1 L, MCHC 29.7 L, RDW Std Deviation 49.9 H, RDW Coeff of Mahad 16.2 H, Plt Count 465 H, MPV 9.0, Immature Gran % (Auto) 0.600, Neut % (Auto) 86.4 H, Lymph % (Auto) 6.3 L, [place] % (Auto) 6.4, Eos % (Auto) 0.1, Baso % (Auto) 0.2, Absolute Neuts (auto) 11.3 H, Absolute Lymphs (auto) 0.83, Nucleated RBC % 0 Physical Exam Narrative Large fungating right breast mass about 20 x 20 cm?surgiform left over top of the previous area that was bleeding no bleeding overnight Const oriented x3 and no apparent distress Resp normal respiratory effort Cardio regular rate Assessment & Plan Assessment/Plan (1) Breast mass in female: (2) ABLA (acute blood loss anemia): PLAN: Plan Plan is for patient to get another session of radiation on Tuesday. Continue to monitor for any bleeding currently controlled. Patient's hemoglobin currently 7.6 we will get another unit packed red blood cells today. Jane Blum M.D. Pager: [phone] [facility] [address] [place] [address], [facility], [address] [place] [address] Office: [phone] Charges/Coding Visit Charges Inpatient E&M: 90118 Subs Hosp L2
[2023-11-13] MEDS: Ondansetron 4 MG/2 ML Vial IV ×2 (08:56→23:28)
[2023-11-13] MEDS: Senna/Docusate Sodium 1 Tablet 2 TABLET PO (09:23)
[2023-11-13] MEDS: oxyCODONE HCl Cr 10 MG Tablet 20 MG PO ×2 (11:42→21:43)
--- NOTE | 2023-11-13 13:05 | PCM.PN.HOSP ---
Reason for Visit Reason for Visit: Diagnoses Acute posthemorrhagic anemia (11/09/23) Unspecified lump in unspecified breast (11/09/23) Subjective Subjective Patient was seen and examined today, her hemoglobin was 7.6, I have decided to transfuse 2 units of packed red blood cells due to the fact I expect her hemoglobin to be lower tomorrow. He complains that her right breast has been hurting her, I have elected to place her on OxyContin and she will receive additional IV and oral pain medication as needed. Patient will have radiation again starting tomorrow again she will need a total of 5 treatments, tomorrow's treatment is treatment #2. I briefly talked with general surgery about her care. Objective Data Objective Data Vital Signs: Vital Signs Temp Pulse Resp BP Pulse Ox O2 Del Method O2 Flow Rate 98.3 F 79 16 131/77 H 98 Room Air 2 11/13/23 13:04 11/13/23 13:04 11/13/23 13:04 11/13/23 13:04 11/13/23 13:04 11/13/23 13:04 11/11/23 20:00 Oxygen Flow Rate (L/min) 2 Oxygen Delivery Method Room Air Weight: 76.4 kg Body Mass Index (BMI) 27.1 Intake & Output: Intake and Output for Last 24 Hours 11/11/23 11/12/23 11/13/23 23:59 23:59 23:59 Intake Total 1517.66 / 1517.66 1361 / 1361 240 / 240 Output Total 350 / 350 875 / 875 550 / 550 Balance 1167.66 / 1167.66 486 / 486 -310 / -310 Medical Nutrition Assessment Dietitian: Malnutrition Criteria Met Start: 11/10/23 14:02 Freq: Status: Active Protocol: Document 11/10/23 14:02 (Rec: 11/10/23 14:02 [id number]) Nutrition Malnutrition Evidence of Malnutrition Exists Yes Malnutrition (moderate): Chronic Evidenced By Suboptimal Energy Intake ( Moderate),Physical Changes ( Mild) Clinical Problem Chronic Disease or Condition Related Malnutrition Etiology moderate, chronic malnutrition related to inadequate energy intake w/ increased energy needs d/t fungating mass Signs/Symptoms as evidenced by mild muscle wasting/fat loss evident in orbital, clavicle, acromion, and temporal areas, estimated PO intake meeting <75% of estimated energy needs > 3 months Status Active Problem Recommendation Dietitian Recommendations/Changes continue regular diet, ensure plus high protein 120mL 4x/day w/ medpass Lab / Micro Data 11/13/23 05:40 11/10/23 03:07 Labs: Laboratory Results - last 24 hr 11/13/23 05:40: WBC 13.1 H, RBC 3.03 L, Hgb 7.6 L, Hct 25.6 L, MCV 84.5, MCH 25.1 L, MCHC 29.7 L, RDW Std Deviation 49.9 H, RDW Coeff of Mahad 16.2 H, Plt Count 465 H, MPV 9.0, Immature Gran % (Auto) 0.600, Neut % (Auto) 86.4 H, Lymph % (Auto) 6.3 L, [place] % (Auto) 6.4, Eos % (Auto) 0.1, Baso % (Auto) 0.2, Absolute Neuts (auto) 11.3 H, Absolute Lymphs (auto) 0.83, Nucleated RBC % 0 11/13/23 11:05: Blood Type O POSITIVE, Antibody Screen NEGATIVE, Crossmatch See Detail Physical Exam Narrative alert, oriented x3 and no apparent distress Constitutional Narrative: Patient appears anxious General Appearance: cooperative, well kempt and well developed Orientation / Consciousness: awake, oriented to person, oriented to place and oriented to time HEENT normocephalic, head/scalp atraumatic and moist oral mucous membranes, patient has supplied some sort of paint to her scalp due to hair loss Eyes PERRL, EOMs intact bilaterally and conjunctivae normal Neck supple, no JVD, thyroid normal and no carotid bruits General: trachea midline Resp normal respiratory effort, no retractions, no use of accessory muscles and clear to auscultation bilaterally Auscultation: Negative for rales, rhonchi or wheezes Cardio regular rate, regular rhythm, S1 normal heart sound, S2 normal heart sound, no murmurs, no rub and no gallops GI normal to inspection, nondistended, normoactive bowel sounds, soft to palpation, non-tender and non-distended Extremity no clubbing, cyanosis or edema Skin Skin Narrative: Patient has a large mass attached to her right lateral breast area, this was not examined completely. Neuro oriented x3, CN's II-XII intact bilaterally, moves all extremities, no focal motor deficits and no sensory deficits noted Sensorium / Orientation: awake and alert Speech: speech normal Psych Psych Narrative: Patient appears anxious at times Assessment & Plan Assessment/Plan (1) Breast mass in female: PLAN: Plan 1. Acute blood loss anemia from untreated carcinoma of the right breast-labs will be repeated tomorrow, she will receive 2 units of packed red blood cells today. #2 large right breast carcinoma-exact identification to follow, patient will have a total of 5 radiation treatments, the second radiation treatment will be given on 11/14/2023, patient still wants to go home when she is medically stable, unfortunately we have no way of predicting when she might have another bleeding episode from her right breast. Again she has refused any consult from hospice, today I talked with her concerning possible treatment regimens, she still does not think she wants treatment. #3 chronic moderate protein and caloric malnutrition-related to inadequate energy intake with increased energy needs due to breast mass as evidenced by mild muscle wasting/fat loss evident in the orbital, clavicular, acromion, and temporal areas. Estimated p.o. intake meeting less than 75% of estimated energy needs over 3 months-continue regular diet, Ensure plus high-protein 120 cc 4 times a day with [facility], nutritional services is participating in her care Patient is a DNR CC arrest with no intubation Total clinical time spent by myself addressing the patient's medical issues, reviewing all of her data, and collaborating with patient's care team: 35 minutes Charges/Coding Visit Charges Inpatient E&M: 74449 Subs Hosp L2
[2023-11-13] MEDS: Ensure Plus High Protein 120 ML LIQUID PO (17:58)
[2023-11-13] MEDS: 0.9% Saline Lock 10 ML Syringe IV (21:48)
[2023-11-14] VITALS (9 sets, daily range): BP systolic 102–152; BP diastolic 61–80; PULSE 92–100; RESP 14–18; TEMP 36.2–38; O2SAT 93–96; BMI 25.8
[2023-11-14] MEDS: Meropenem 1 GM in 0.9% Normal Saline (100mL MB+) 100 ML IV ×3 (05:09→21:59)
[2023-11-14 05:58] LABS: Absolute Lymphocyte Count 1.12 X10^3/uL (0.83-4.51); Basophil# 0.03 X10^3/uL; Basophil% 0.2 % (0-1); Eosinophil# 0.01 X10^3/uL; Eosinophils% 0.1 % (0-5); Hematocrit 31.2 % (37-47); Hemoglobin 9.5 g/dL (12.0-15.0); Lymphocyte # 1.12 X10^3/ul (0.83-4.51); Lymphocyte % 8.5 % (19-41); Mean Corp Hgb Conc 30.4 g/dL (32-36); Mean Corpuscular Volume 85.5 fL (81-99); Mean Platelet Vol. 9.1 fl (6.2-12.0); Monocyte# 0.98 X10^3/uL; Monocyte% 7.4 % (0-10); NRBC Flagged by Analyzer 0 % (0-5); Neutrophil # 10.98 X10^3/uL (2.7-7.7); Platelet Count 506 K/mm3 (150-450); RBC Distribution Width SD 50.4 fl (35.1-43.9); Red Blood Count 3.65 M/mm3 (4.2-5.4); White Blood Count 13.2 K/mm3 (4.4-11.0)
--- NOTE | 2023-11-14 07:30 | PCM.PN.SRG ---
Subjective Subjective Patient was evaluated resting completely in bed. She denies any overnight bleeding events. She notes she had 2 units of blood yesterday. She is scheduled to go for another radiation treatment today. She may possibly be discharged today. She notes discomfort upon movement of the right breast mass. Objective Data Objective Data Vital Signs: Vital Signs Temp Pulse Resp BP Pulse Ox O2 Del Method O2 Flow Rate 98.6 F 97 18 117/67 93 Room Air 1 11/14/23 05:51 11/14/23 03:22 11/14/23 03:22 11/14/23 03:22 11/14/23 05:51 11/14/23 05:51 11/14/23 03:25 Oxygen Flow Rate (L/min) 1 Oxygen Delivery Method Room Air Weight: 160 lb 4.417 oz Body Mass Index (BMI) 25.8 Intake & Output: Intake and Output for Last 24 Hours 11/12/23 11/13/23 11/14/23 23:59 23:59 23:59 Intake Total 1361 / 1361 1142 / 1142 120 / 120 Output Total 875 / 875 1850 / 1850 200 / 200 Balance 486 / 486 -708 / -708 -80 / -80 Medical Nutrition Assessment Dietitian: Malnutrition Criteria Met Start: 11/10/23 14:02 Freq: Status: Active Protocol: Document 11/10/23 14:02 (Rec: 11/10/23 14:02 [id number]) Nutrition Malnutrition Evidence of Malnutrition Exists Yes Malnutrition (moderate): Chronic Evidenced By Suboptimal Energy Intake ( Moderate),Physical Changes ( Mild) Clinical Problem Chronic Disease or Condition Related Malnutrition Etiology moderate, chronic malnutrition related to inadequate energy intake w/ increased energy needs d/t fungating mass Signs/Symptoms as evidenced by mild muscle wasting/fat loss evident in orbital, clavicle, acromion, and temporal areas, estimated PO intake meeting <75% of estimated energy needs > 3 months Status Active Problem Recommendation Dietitian Recommendations/Changes continue regular diet, ensure plus high protein 120mL 4x/day w/ medpass Lab / Micro Data 11/14/23 05:00 11/10/23 03:07 Labs: Laboratory Results - last 24 hr 11/13/23 11:05: Blood Type O POSITIVE, Antibody Screen NEGATIVE, Crossmatch See Detail 11/14/23 05:00: WBC 13.2 H, RBC 3.65 L, Hgb 9.5 L, Hct 31.2 L, MCV 85.5, MCH 26.0 L, MCHC 30.4 L, RDW Std Deviation 50.4 H, RDW Coeff of Mahad 16.0 H, Plt Count 506 H, MPV 9.1, Immature Gran % (Auto) 0.800, Neut % (Auto) 83.0 H, Lymph % (Auto) 8.5 L, [place] % (Auto) 7.4, Eos % (Auto) 0.1, Baso % (Auto) 0.2, Absolute Neuts (auto) 11.0 H, Absolute Lymphs (auto) 1.12, Nucleated RBC % 0 Physical Exam Chest Chest Narrative: Right chest- large tumor lateral breast. No active bleeding noted. KENY wrap intact. Assessment & Plan Assessment/Plan (1) Breast mass in female: (2) ABLA (acute blood loss anemia): PLAN: Plan I am following this patient in conjunction with Dr. Blum. Patient's Hgb is 9.5 up from 7.6. Patient to continue with radiation treatment today Possible discharge today We will continue to monitor this patient Charges/Coding Visit Charges Inpatient E&M: 48121 Subs Hosp L1
[2023-11-14] MEDS: 0.9% Saline Lock 10 ML Syringe IV ×4 (08:08→21:58)
[2023-11-14] MEDS: Morphine 4 MG/ML Syringe IV ×3 (08:08→14:16)
[2023-11-14] MEDS: Menthol/Lanolin/Calamine/Znox 113 GM Tube 1 APPLIC TOPICAL ×4 (08:10→22:00)
[2023-11-14] MEDS: Famotidine 20 MG Tablet PO ×2 (08:11→22:01)
[2023-11-14] MEDS: Multivitamins,Therapeutic Tablet 1 TABLET PO (08:11)
[2023-11-14] MEDS: Metoprolol Tartrate 25 MG Tablet PO ×2 (08:11→22:01)
[2023-11-14] MEDS: Ensure Plus High Protein 120 ML LIQUID PO ×3 (08:11→18:10)
[2023-11-14] MEDS: oxyCODONE HCl Cr 10 MG Tablet 20 MG PO ×2 (09:02→21:57)
[2023-11-14] MEDS: Senna/Docusate Sodium 1 Tablet 2 TABLET PO (09:06)
--- NOTE | 2023-11-14 11:35 | WOUNDNOTE ---
Was called down to radiation room d/t bleeding from the right breast. bleeding had been under control by the time this nurse got down there. will reassess once patient is back to the room. sister present in room and is very concerned about patient going home. sister states she will not be able to assist with dressing changes at home. will discuss with nursing and case management.
[2023-11-14] MEDS: oxyCODONE 5 MG Tablet PO (12:57)
--- NOTE | 2023-11-14 13:43 | WOUNDNOTE ---
Pt had some moderate bloody oozing. Dr Blum in and used Floseal to slow the oozing and then surgifoam was applied. pressure dressing was applied with multiple ABD pads. wrapped with 2 KENY wraps for compression. pt tearful and states I just want to go home. It's my time. emotional support provided. Pt states I just want to be left alone. I don't want my sister or daughter trying to talk me into anything. I've already decided, I'm going home. I want to at home.
--- NOTE | 2023-11-14 13:46 | CASEMGMT ---
Addendum entered by Nallely Bryan 11/14/23 15:42: Social Work Return call from David at [facility]. Meeting has been set with pt for tomorrow morning at 9am, 11/14. SW updated nursing and physician. JOHANN Tan Original Note: Social Work SW received referral from physician for [facility]. SW met with pt who is agreeable to referral to [facility]. Pt is adamant that she does not want the [facility]. SW assured pt that referral was not for [facility] and that pt has a choice. Referral made to Jeanne at [facility] and clinicals sent. [facility] hospice to call pt directly to set up time to meet with pt to discuss services. Pt agreeable. JOHANN Tan
--- NOTE | 2023-11-14 13:59 | CASEMGMT ---
SW spoke with pt regarding HCPOA. Pt does not want to complete at this time. Pt made aware that if she is unable to make own decisions and without a HCPOA pt's children will be joint decision makers. JOHANN Tan
--- NOTE | 2023-11-14 16:20 | PCM.PN.HOSP ---
Reason for Visit Reason for Visit: Abnormal lab/right breast mass Subjective Subjective Patient is a 78-year-old female with a history of left mastectomy due to breast cancer who presented to the emergency department at [facility] on 11/09/2023 with an enlarging left-sided breast mass and anemia. She was aware it was there and likely cancer but had not had it evaluated secondary to concerns for finances. She did complain of fatigue and malaise at the time of presentation as well as shortness of breath when she attempted to perform any activities. Vital signs on presentation showed a temperature of 98.2, heart rate 103, blood pressure was 188/95, respiratory rate was 20 and oxygen saturation was 96% on room air. Her CBC showed a mildly elevated leukocytosis with a white count 11.7, hemoglobin of 6.6 with an MCV of 81 and elevated platelet count at 667,000. CMP was overall unremarkable. Lipase was normal. Type and screen was done in the emergency department and blood was ordered for transfusion. CT of the brain was unremarkable. 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 She was given 1 unit of packed red blood cells and during evaluation by the admitting physician she started to have significant hemorrhaging from the right breast mass and general surgery was consulted. She was admitted to the floor and received further transfusion and general surgery performed an ultrasound-guided right breast biopsy at the bedside. Radiation oncology was also consulted and recommended radiation to help with the bleeding it was noted that the radiation was to be palliative as the patient did not want to pursue any aggressive treatment for her cancer. Pathology remains pending at this time. Wound care was also consulted and she is had ongoing care by them. She has required 2 more units of packed red blood cells as she continues to have intermittent bleeding from this mass. Multiple conversations with regards to hospice have been held with the patient and initially she was adamantly against it. On further evaluation today it was thought maybe the patient would be able to go home as her hemoglobin was up to 9.5 after transfusion yesterday however she had acute bleeding while at radiation today. We again did stressed CODE STATUS as her wishes are to go home and comfortably. She is adamant that she would like to in her home. I tried to discuss hospice with her further and she was adamant that that is not how she would like to do things even though her sister and daughter tried to assist in conversation as well. Eventually with the ongoing bleeding general surgery was able to talk to her and she was now amenable to possible discharge home with hospice after they evaluate her. Objective Data Objective Data Vital Signs: Vital Signs Temp Pulse Resp BP Pulse Ox O2 Del Method O2 Flow Rate 98.6 F 92 14 152/80 H 95 Room Air 1 11/14/23 08:05 11/14/23 08:11 11/14/23 08:05 11/14/23 08:11 11/14/23 08:05 11/14/23 08:18 11/14/23 03:25 Oxygen Flow Rate (L/min) 1 Oxygen Delivery Method Room Air Weight: 72.7 kg Body Mass Index (BMI) 25.8 Intake & Output: Intake and Output for Last 24 Hours 11/12/23 11/13/23 11/14/23 23:59 23:59 23:59 Intake Total 1361 / 1361 1142 / 1142 780 / 780 Output Total 875 / 875 1850 / 1850 200 / 200 Balance 486 / 486 -708 / -708 580 / 580 Medical Nutrition Assessment Dietitian: Malnutrition Criteria Met Start: 11/10/23 14:02 Freq: Status: Active Protocol: Document 11/10/23 14:02 (Rec: 11/10/23 14:02 [id number]) Nutrition Malnutrition Evidence of Malnutrition Exists Yes Malnutrition (moderate): Chronic Evidenced By Suboptimal Energy Intake ( Moderate),Physical Changes ( Mild) Clinical Problem Chronic Disease or Condition Related Malnutrition Etiology moderate, chronic malnutrition related to inadequate energy intake w/ increased energy needs d/t fungating mass Signs/Symptoms as evidenced by mild muscle wasting/fat loss evident in orbital, clavicle, acromion, and temporal areas, estimated PO intake meeting <75% of estimated energy needs > 3 months Status Active Problem Recommendation Dietitian Recommendations/Changes continue regular diet, ensure plus high protein 120mL 4x/day w/ medpass Lab / Micro Data 11/14/23 05:00 11/10/23 03:07 Labs: Laboratory Results - last 24 hr 11/13/23 11:05: Crossmatch See Detail 11/14/23 05:00: WBC 13.2 H, RBC 3.65 L, Hgb 9.5 L, Hct 31.2 L, MCV 85.5, MCH 26.0 L, MCHC 30.4 L, RDW Std Deviation 50.4 H, RDW Coeff of Mahad 16.0 H, Plt Count 506 H, MPV 9.1, Immature Gran % (Auto) 0.800, Neut % (Auto) 83.0 H, Lymph % (Auto) 8.5 L, [place] % (Auto) 7.4, Eos % (Auto) 0.1, Baso % (Auto) 0.2, Absolute Neuts (auto) 11.0 H, Absolute Lymphs (auto) 1.12, Nucleated RBC % 0 Micro: Microbiology 11/11/23 19:59 Blood Culture (Wb) - Right Wrist Blood Culture - Preliminary No growth in 48 hours. 11/11/23 19:50 Blood Culture (Wb) - Right Hand Blood Culture - Preliminary No growth in 48 hours. Physical Exam Const alert, oriented x3, no apparent distress and average body habitus; Negative for healthy appearing or well nourished Constitutional Narrative: Malnourished appearing, older, white female, sitting up in bed, currently appears comfortable and nontoxic, does appear frustrated with the situation HEENT head/scalp atraumatic and moist oral mucous membranes HEENT Narrative: Patient with dye in her hair Head and Scalp: normocephalic Eyes PERRL and EOMs intact bilaterally Eyes Narrative: Conjunctiva are pale bilaterally, no scleral icterus Neck no lymphadenopathy and supple Neck Narrative: Trachea midline, no thyroid enlargement Resp normal respiratory effort, no retractions, no use of accessory muscles and clear to auscultation bilaterally Auscultation: Negative for rales, rhonchi or wheezes Cardio regular rate, regular rhythm, S1 normal heart sound, S2 normal heart sound, no murmurs, no rub, no gallops and no clicks GI normal to inspection, nondistended, normoactive bowel sounds, soft to palpation and non-tender Extremity no clubbing, cyanosis or edema Extremity Narrative: Decreased lean muscle mass, pedal pulses are 2+, radial pulses are 2+ Skin Skin Narrative: Dressing in place but pictures from previous wound care nurse evaluation are noted Neuro oriented x3 and moves all extremities Neuro Narrative: Marked generalized weakness with no focal deficits Speech: speech normal Psych Psych Narrative: Patient seems somewhat agitated and upset about the entire situation and intermittently has been demanding to leave AGAINST MEDICAL ADVICE Assessment & Plan Assessment/Plan (1) Breast mass in female: (2) ABLA (acute blood loss anemia): (3) Thrombocytosis: (4) Leukocytosis: PLAN: Plan Assessment: Acute blood 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 Large right breast wound secondary to suspected carcinoma--> biopsy results are pending Moderate malnutrition History of hypertension Leukocytosis-chronic and stable Thrombocytosis secondary to iron deficiency Hyperglycemia Plan: -After extensive discussion with multi subspecialists and her sister as well as the patient she is now agreeable to hospice but only in the home -Hospice to evaluate the patient tomorrow at 9 AM -Anticipate discharge home tomorrow after evaluated by hospice -Patient would qualify for IPU but she is adamant that she wants to at home and not go to the inpatient hospice unit despite our suspicion that she would qualify for multiple reasons Charges/Coding Visit Charges Inpatient E&M: 06568 [facility] Hosp L3
[2023-11-14] MEDS: Acetaminophen 325 MG Tablet 650 MG PO (18:25)
[2023-11-15 04:15] VITALS: BP 127/67; PULSE 88; RESP 18; TEMP 36.4; O2SAT 93
[2023-11-15] MEDS: oxyCODONE 5 MG Tablet PO (04:20)
[2023-11-15] MEDS: Acetaminophen 325 MG Tablet 650 MG PO (04:20)
[2023-11-15] MEDS: Meropenem 1 GM in 0.9% Normal Saline (100mL MB+) 100 ML IV (05:11)
[2023-11-15 06:00] VITALS: BMI 25.9
[2023-11-15 07:27] VITALS: O2SAT 94
--- NOTE | 2023-11-15 07:53 | PCM.PN.SRG ---
Subjective Subjective Patient evaluated resting comfortably in bed. Patient is adamant that she would like to go home with hospice today. She does not want to go to the inpatient facility. Patient denies any further bleeding overnight. She is declining any further radiation treatment today. Objective Data Objective Data Vital Signs: Vital Signs Temp Pulse Resp BP Pulse Ox O2 Del Method O2 Flow Rate 97.6 F L 88 18 127/67 H 93 Room Air 2 11/15/23 04:15 11/15/23 04:15 11/15/23 04:15 11/15/23 04:15 11/15/23 04:15 11/15/23 04:30 11/14/23 18:15 Oxygen Flow Rate (L/min) 2 Oxygen Delivery Method Room Air Weight: 160 lb 11.472 oz Body Mass Index (BMI) 25.9 Intake & Output: Intake and Output for Last 24 Hours 11/13/23 11/14/23 11/15/23 23:59 23:59 23:59 Intake Total 1142 / 1142 1275 / 1275 240 / 240 Output Total 1850 / 1850 200 / 200 Balance -708 / -708 1075 / 1075 240 / 240 Medical Nutrition Assessment Dietitian: Malnutrition Criteria Met Start: 11/10/23 14:02 Freq: Status: Active Protocol: Document 11/10/23 14:02 (Rec: 11/10/23 14:02 [id number]) Nutrition Malnutrition Evidence of Malnutrition Exists Yes Malnutrition (moderate): Chronic Evidenced By Suboptimal Energy Intake ( Moderate),Physical Changes ( Mild) Clinical Problem Chronic Disease or Condition Related Malnutrition Etiology moderate, chronic malnutrition related to inadequate energy intake w/ increased energy needs d/t fungating mass Signs/Symptoms as evidenced by mild muscle wasting/fat loss evident in orbital, clavicle, acromion, and temporal areas, estimated PO intake meeting <75% of estimated energy needs > 3 months Status Active Problem Recommendation Dietitian Recommendations/Changes continue regular diet, ensure plus high protein 120mL 4x/day w/ medpass Lab / Micro Data 11/14/23 05:00 11/10/23 03:07 Micro: Microbiology 11/11/23 19:59 Blood Culture (Wb) - Right Wrist Blood Culture - Preliminary No growth in 48 hours. 11/11/23 19:50 Blood Culture (Wb) - Right Hand Blood Culture - Preliminary No growth in 48 hours. Physical Exam Chest Chest Narrative: Right chest- CHRIS wrap intact and not removed as patient had bleeding episode yesterday after radiation. No flash bleeding noted. Assessment & Plan Assessment/Plan (1) Breast mass in female: PLAN: I am following this patient in conjunction with Dr. Blum. She will independently evaluate this patient. Patient is agreeable to be discharged to home with hospice Keep Chris wrap intact Follow-up with our office as needed No surgical intervention is being recommended Okay for discharge home with hospice from surgical standpoint Charges/Coding Visit Charges Inpatient E&M: 72812 Subs Hosp L1
[2023-11-15 08:46] VITALS: BP 96/66; PULSE 88; RESP 15; TEMP 36.7; O2SAT 94
[2023-11-15] MEDS: oxyCODONE HCl Cr 10 MG Tablet 20 MG PO ×2 (08:57→22:29)
[2023-11-15] MEDS: Ensure Plus High Protein 120 ML LIQUID PO ×3 (08:58→22:37)
[2023-11-15] MEDS: Multivitamins,Therapeutic Tablet 1 TABLET PO (08:59)
[2023-11-15] MEDS: Famotidine 20 MG Tablet PO (08:59)
[2023-11-15] MEDS: Menthol/Lanolin/Calamine/Znox 113 GM Tube 1 APPLIC TOPICAL ×4 (08:59→22:35)
[2023-11-15] MEDS: Senna/Docusate Sodium 1 Tablet 2 TABLET PO (09:06)
--- NOTE | 2023-11-15 09:35 | CASEMGMT ---
[facility] is at [facility] meeting with patient. Patricia Meneses LEASE ADMINISTRATION SUPERVISOR JENY
[2023-11-15] MEDS: 0.9% Saline Lock 10 ML Syringe IV (10:24)
[2023-11-15] MEDS: Morphine 4 MG/ML Syringe IV (10:24)
--- NOTE | 2023-11-15 10:58 | CASEMGMT ---
Addendum entered by Patricia Meneses 11/15/23 13:45: office support assistant spoke with weigher and charger and they would like patient to stay in the hospital until her pain is under better control. Hospice would take patient in their inpatient unit, but patient refuses the inpatient unit. Physician is aware. Patricia FERMIN Original Note: Patient agreed to signing with Hospice. Patient wants to go home on Hospice. office support assistant spoke with patient about the inpatient unit due to her pain. However, patient is very adamant she wants to go home and try it. Hospice will work on getting things set up in the home. SW notified physician. Patricia FERMIN
--- NOTE | 2023-11-15 11:22 | WOUNDNOTE ---
In to assess the dressing to the right breast. no breakthrough drainage on the KENY wrap. will leave dressing in place. Pt had met with hospice and plans to go home with hospice later today. Pt states it's a little scary, but I want to at home. Pt comforted. denies further questions or concerns at this time. Pt is currently up in chair.
--- NOTE | 2023-11-15 12:05 | PCM.PN.HOSP ---
Reason for Visit Reason for Visit: Abnormal labs/right breast mass Subjective Subjective Patient has hospice meeting today and has agreed to go home with hospice. We will try to get her pain under little bit better control with oral medications and shoot for discharge tomorrow. Patient voices understanding and is agreeable. Objective Data Objective Data Vital Signs: Vital Signs Temp Pulse Resp BP Pulse Ox O2 Del Method O2 Flow Rate 98.1 F 88 15 96/66 94 Room Air 2 11/15/23 08:46 11/15/23 08:46 11/15/23 08:46 11/15/23 08:46 11/15/23 08:46 11/15/23 09:00 11/14/23 18:15 Oxygen Flow Rate (L/min) 2 Oxygen Delivery Method Room Air Weight: 72.9 kg Body Mass Index (BMI) 25.9 Intake & Output: Intake and Output for Last 24 Hours 11/13/23 11/14/23 11/15/23 23:59 23:59 23:59 Intake Total 1142 / 1142 1275 / 1275 810 / 810 Output Total 1850 / 1850 200 / 200 Balance -708 / -708 1075 / 1075 810 / 810 Medical Nutrition Assessment Dietitian: Malnutrition Criteria Met Start: 11/10/23 14:02 Freq: Status: Active Protocol: Document 11/10/23 14:02 (Rec: 11/10/23 14:02 [id number]) Nutrition Malnutrition Evidence of Malnutrition Exists Yes Malnutrition (moderate): Chronic Evidenced By Suboptimal Energy Intake ( Moderate),Physical Changes ( Mild) Clinical Problem Chronic Disease or Condition Related Malnutrition Etiology moderate, chronic malnutrition related to inadequate energy intake w/ increased energy needs d/t fungating mass Signs/Symptoms as evidenced by mild muscle wasting/fat loss evident in orbital, clavicle, acromion, and temporal areas, estimated PO intake meeting <75% of estimated energy needs > 3 months Status Active Problem Recommendation Dietitian Recommendations/Changes continue regular diet, ensure plus high protein 120mL 4x/day w/ medpass Lab / Micro Data 11/14/23 05:00 11/10/23 03:07 Micro: Microbiology 11/11/23 19:59 Blood Culture (Wb) - Right Wrist Blood Culture - Preliminary No growth in 48 hours. 11/11/23 19:50 Blood Culture (Wb) - Right Hand Blood Culture - Preliminary No growth in 48 hours. Physical Exam Const alert, oriented x3, no apparent distress and average body habitus; Negative for healthy appearing or well nourished Constitutional Narrative: Malnourished appearing, older, white female, sitting up in a chair at the bedside, currently appears comfortable and nontoxic, much less anxious and agitated today General Appearance: cooperative HEENT normocephalic, head/scalp atraumatic and moist oral mucous membranes HEENT Narrative: Dentition is poor, Mallampati is 2, no thrush Resp normal respiratory effort, no retractions, no use of accessory muscles and clear to auscultation bilaterally Auscultation: Negative for rales, rhonchi or wheezes Cardio regular rate, regular rhythm, S1 normal heart sound, S2 normal heart sound, no murmurs, no rub, no gallops and no clicks GI normal to inspection, nondistended, normoactive bowel sounds, soft to palpation and non-tender Extremity no clubbing, cyanosis or edema Extremity Narrative: Decreased lean muscle mass, pedal pulses are 2+, radial pulses are 2+ Neuro oriented x3, moves all extremities and no focal motor deficits Neuro Narrative: Generalized weakness noted but no focal deficits appreciated Speech: speech normal Psych affect normal Psych Narrative: Calm today, interacts appropriately Assessment & Plan Assessment/Plan (1) Breast mass in female: (2) ABLA (acute blood loss anemia): (3) Thrombocytosis: (4) Leukocytosis: PLAN: Plan Assessment: Acute blood 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 Large right breast wound secondary to suspected carcinoma--> biopsy results are pending Moderate malnutrition History of hypertension Leukocytosis-chronic and stable Thrombocytosis secondary to iron deficiency Hyperglycemia Plan: -Plan is for discharge home with hospice tomorrow -Will attempt to get pain and better control off of IV narcotics today -Will schedule acetaminophen 1 g every 8 hours -Start scheduled ibuprofen 400 mg every 6 hours -Will go Protonix 40 mg daily to avoid issues related to chronic NSAID use -Increase as needed oxycodone to 10 mg every 3 hours -Continue basal oxycodone 20 twice daily -Add gabapentin 200 mg 3 times daily -Patient is adamant that she would like to go home rather than go to IPU at this time but she would be agreeable if she fails at home. Charges/Coding Visit Charges Inpatient E&M: 51703 Subs Hosp L2
[2023-11-15] MEDS: Ibuprofen 200 MG Tablet 400 MG PO ×2 (12:36→17:36)
[2023-11-15] MEDS: Gabapentin 100 MG Capsule 200 MG PO ×2 (12:36→17:36)
[2023-11-15] MEDS: Acetaminophen 500 MG Tablet 1000 MG PO ×2 (12:39→22:30)
[2023-11-15] MEDS: NYSTATIN 500,000 UNIT/5 ML UDC 500000 UNIT PO ×3 (13:16→22:29)
[2023-11-15 14:09] LABS: Sickle Hgb Solubility Negative (Negative)
[2023-11-15] MEDS: oxyCODONE 5 MG Tablet 10 MG PO (14:48)
[2023-11-15 15:20] VITALS: BP 107/65; PULSE 92; RESP 16; TEMP 37.1; O2SAT 98
[2023-11-15 22:38] VITALS: BP 113/57; PULSE 93; RESP 18; TEMP 36.7; O2SAT 97
[2023-11-16] MEDS: Ibuprofen 200 MG Tablet 400 MG PO ×4 (01:57→17:12)
[2023-11-16 04:30] VITALS: BP 109/60; PULSE 94; RESP 16; TEMP 36.7; O2SAT 95
[2023-11-16] MEDS: Acetaminophen 500 MG Tablet 1000 MG PO ×2 (05:33→15:33)
[2023-11-16 06:00] VITALS: BMI 26.0
[2023-11-16 07:47] VITALS: O2SAT 95
--- NOTE | 2023-11-16 07:52 | PCM.PN.SRG ---
Subjective Subjective Patient is evaluated resting comfortably in bed. She notes feeling good about going home. She notes her pain is well controlled with oral pain medication. She is to go home on hospice today. No overnight bleeding episodes noted. Pathology did return demonstrating: COMMENT INVASIVE BREAST CANCER SUMMARY: Procedure: Needle core biopsy Specimen Laterality: Right breast Tumor site: Not specified Histologic type: Invasive ductal carcinoma Provisional Histologic grade: 3 Tubule Differentiation Score: 3 Nuclear Pleomorphism Score: 2 Mitotic Rate Score: 3 Tumor Size ( greatest dimension): 9.0mm Ductal Carcinoma Insitu: Not identified Angiolymphatic Invasion: Not identified Microcalcifications: Not identified Additional Findings: None Breast Marker Study: [id number] ER:0% (negative) TX:0% (negative) Her2:2+ (equivocal) Ki67:90% [id number]:Not amplified. 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 Objective Data Objective Data Vital Signs: Vital Signs Temp Pulse Resp BP Pulse Ox O2 Del Method O2 Flow Rate 98.0 F 94 16 109/60 95 Room Air 2 11/16/23 04:30 11/16/23 04:30 11/16/23 04:30 11/16/23 04:30 11/16/23 04:30 11/16/23 04:30 11/14/23 18:15 Oxygen Flow Rate (L/min) 2 Oxygen Delivery Method Room Air Weight: 161 lb 9.581 oz Body Mass Index (BMI) 26.0 Intake & Output: Intake and Output for Last 24 Hours 11/14/23 11/15/23 11/16/23 23:59 23:59 23:59 Intake Total 1275 / 1275 1210 / 1310 200 / 200 Output Total 200 / 200 Balance 1075 / 1075 1210 / 1310 200 / 200 Medical Nutrition Assessment Dietitian: Malnutrition Criteria Met Start: 11/10/23 14:02 Freq: Status: Active Protocol: Document 11/15/23 13:21 RMA (Rec: 11/15/23 13:21 [id number]) Nutrition Malnutrition Evidence of Malnutrition Exists Yes Malnutrition (moderate): Chronic Evidenced By Suboptimal Energy Intake ( Moderate),Physical Changes ( Mild) Clinical Problem Chronic Disease or Condition Related Malnutrition Etiology moderate, chronic malnutrition related to inadequate energy intake w/ increased energy needs d/t fungating mass Signs/Symptoms as evidenced by mild muscle wasting/fat loss evident in orbital, clavicle, acromion, and temporal areas, estimated PO intake meeting <75% of estimated energy needs > 3 months Status Active Problem Recommendation Dietitian Recommendations/Changes Will continue liberalized regular diet with ensure plus high protein 120mL 4x/day w/ medpass as ordered. Will sign off, plans for d/c home with hospice--consult as needed. Lab / Micro Data 11/14/23 05:00 11/10/23 03:07 Labs: Laboratory Results - last 24 hr 11/14/23 05:00: Sickle Cell Solubility Negative Micro: Microbiology 11/11/23 19:59 Blood Culture (Wb) - Right Wrist Blood Culture - Preliminary No growth in 48 hours. 11/11/23 19:50 Blood Culture (Wb) - Right Hand Blood Culture - Preliminary No growth in 48 hours. Physical Exam Chest Chest Narrative: Right breast- large cancerous tumor lateral right breast secured with an bay wrap Assessment & Plan Assessment/Plan (1) Breast mass in female: PLAN: I am following this patient in conjunction with Dr. Blum Plan is for patient to be discharged to home on Hospice Follow-up with our office as needed Pathology was discussed with the patient Charges/Coding Visit Charges Inpatient E&M: 77809 Subs Hosp L1
--- NOTE | 2023-11-16 09:03 | WOUNDNOTE ---
Dressing and KENY wrap remain D&I to the right breast. will leave in place. patient plans to go home today with hospice. pt states pain has been controlled.
--- NOTE | 2023-11-16 10:31 | CASEMGMT ---
Addendum entered by Ana Murphy 11/16/23 11:31: Social Work Hospice is to come see pt within the hour to make sure pt is ready for discharge. BEE Morales Addendum entered by Ana Murphy 11/16/23 10:42: Social Work As per physician, pt's pain is better under control. SW called hospice back, they will set up a time to come see pt and will let SW know. Also, her walker was ordered and should have been delivered, this was the only DME needed. SW let physician know. BEE Morales Original Note: Social Work As per physician, pt may be able to go home on hospice today, inquired what the process is to get her home as hospice had said yesterday she could go home w/hospice when her pain is better controlled. SW let physician know, if pt is better under control hospice will come back out to assess pt. BEE Morales
[2023-11-16 11:22] VITALS: BP 116/68; PULSE 94; RESP 16; TEMP 36.9; O2SAT 94
[2023-11-16] MEDS: NYSTATIN 500,000 UNIT/5 ML UDC 500000 UNIT PO ×3 (11:26→17:09)
[2023-11-16] MEDS: Pantoprazole Sodium 40 MG Tablet PO (11:26)
[2023-11-16] MEDS: Multivitamins,Therapeutic Tablet 1 TABLET PO (11:26)
[2023-11-16] MEDS: Menthol/Lanolin/Calamine/Znox 113 GM Tube 1 APPLIC TOPICAL ×2 (11:27→15:33)
[2023-11-16] MEDS: Senna/Docusate Sodium 1 Tablet 2 TABLET PO (11:32)
[2023-11-16] MEDS: Gabapentin 100 MG Capsule 200 MG PO ×2 (11:33→17:13)
[2023-11-16] MEDS: oxyCODONE HCl Cr 10 MG Tablet 20 MG PO (11:33)
--- NOTE | 2023-11-16 12:26 | PCM.DC.SUM ---
Providers Date of Admission: 11/09/23 Date of Discharge: 11/16/23 Primary Care Physician: [facility] Consultations 11/09/23 17:11 Consult: General Surgery Routine Consulting Provider: Jane Blum Reason for Consult: ABLA from breast mass, for Bx EMERGENT Consult: No Notified: Yes Date Notified: 11/09/23 Time Notified: 15:03 Method of Notification: Verbal Consult: Onc/Wound/flood control engineer Routine Comment: Reason for Consult:: R breast wound/underlying CA Consult: Radiation Oncology Routine Consulting Provider: Patricio Mendes Reason for Consult: Bleeding breast mass EMERGENT Consult: No MD Notified: Yes Date Notified: 11/09/23 Time Notified: 15:04 Method of Notification: Verbal 11/14/23 13:40 Consult: Hospice / Palliative Care Routine Consulting Provider: [facility] Reason for Consult: breast cancer EMERGENT Consult: Yes MD Notified: Yes Date Notified: 11/14/23 Time Notified: 13:40 Method of Notification: Verbal Reason For Visit: ABLA, BREAST MASS Diagnosis Discharge Diagnosis (1) Breast mass in female: Status: Acute Code(s): N63.0 - Unspecified lump in unspecified breast Medications at Discharge Home Medications multivitamin (Daily Multi-Vitamin tablet) 1 tab PO DAILY 11/09/23 acetaminophen 500 mg tablet 1,000 mg (2 x 500 mg) PO Q8 #0 tabs 11/16/23 gabapentin 100 mg capsule 200 mg (2 x 100 mg) PO TIDCM #18 caps 11/16/23 ibuprofen 200 mg tablet 400 mg (2 x 200 mg) PO Q6 #24 tabs 11/16/23 lorazepam 0.5 mg tablet 0.5 mg PO TID #9 tabs 11/16/23 nystatin 100,000 unit/mL oral suspension 500,000 unit (5 mL) PO 4X/DAY #60 mL 11/16/23 oxycodone 10 mg tablet,crush resistant,extended release 12 hr (OxyContin) 20 mg (2 x 10 mg) PO BID 3 days #12 tabs 11/16/23 oxycodone 5 mg tablet 10 mg (2 x 5 mg) PO Q3H PRN PRN Pain Score 4-10 3 days #54 tabs 11/16/23 pantoprazole 40 mg tablet,delayed release 40 mg PO DAILY #30 tabs 11/16/23 sennosides 8.6 mg-docusate sodium 50 mg tablet (Stool Softener-Stimulant Laxative) 2 tab PO BID #60 tabs 11/16/23 Hospital Course Operations - (Breast biopsy) Procedures - (Radiation to the right anterior chest wall/CT chest abdomen and pelvis/CT brain) Summary of Care Provided Minutes Spent on Discharge: 39 Hospital Course: Patient is a 78-year-old female with a history of left mastectomy due to breast cancer who presented to the emergency department at [facility] on 11/09/2023 with an enlarging left-sided breast mass and anemia. She was aware it was there and likely cancer but had not had it evaluated secondary to concerns for finances. She did complain of fatigue and malaise at the time of presentation as well as shortness of breath when she attempted to perform any activities. Vital signs on presentation showed a temperature of 98.2, heart rate 103, blood pressure was 188/95, respiratory rate was 20 and oxygen saturation was 96% on room air. Her CBC showed a mildly elevated leukocytosis with a white count 11.7, hemoglobin of 6.6 with an MCV of 81 and elevated platelet count at 667,000. CMP was overall unremarkable. Lipase was normal. Type and screen was done in the emergency department and blood was ordered for transfusion. CT of the brain was unremarkable. 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 She was given 1 unit of packed red blood cells and during evaluation by the admitting physician she started to have significant hemorrhaging from the right breast mass and general surgery was consulted. She was admitted to the floor and received further transfusion and general surgery performed an ultrasound-guided right breast biopsy at the bedside. Radiation oncology was also consulted and recommended radiation to help with the bleeding it was noted that the radiation was to be palliative as the patient did not want to pursue any aggressive treatment for her cancer. Pathology remains pending at this time. Wound care was also consulted and she is had ongoing care by them. She required 2 more units of packed red blood cells as she continues to have intermittent bleeding from this mass. Patient went for radiation on 11/14/2023 and had worsening bleeding again. We did have another conversation with her as the general surgery and she did finally agree to hospice in the home. She was adamant that she did not want to go to the [facility] and wanted to try to go home with hospice but was of the understanding that if she did not do well at home with hospice she could be transition to the [facility] if needed. We were able to get her on oral pain medication and her pain regulated with this. She was started on acetaminophen at 1000 mg scheduled 3 times daily, gabapentin 200 mg 3 times daily, ibuprofen 400 mg every 6 hours, as needed lorazepam 0.5 mg 3 times daily, oxycodone 10 mg every 3 hours as needed and oxycodone 20 mg twice daily. Since we are using an NSAID we did place her on Protonix 40 mg daily so she would not develop any abdominal discomfort and she was noted to have thrush so she was started on nystatin to complete a course for comfort as well. Hospice evaluated the patient and got her set up at home and she was discharged on 11/16/2023. Biopsy did come back preliminarily with invasive ductal carcinoma and was ER/MI negative and HER2/epifanio positive. 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 Anxious to go home. I did discuss that she will go home later today and she is going to make arrangements for transportation Const alert, oriented x3, no apparent distress and average body habitus; Negative for healthy appearing or well nourished Constitutional Narrative: Malnourished appearing, older, white female, sitting up in bed, currently appears comfortable and nontoxic, much less anxious and agitated today General Appearance: cooperative, comfortable, well kempt and well developed Orientation / Consciousness: awake, oriented to person, oriented to place and oriented to time HEENT normocephalic, head/scalp atraumatic, hearing grossly normal bilaterally and moist oral mucous membranes HEENT Narrative: Dentition is poor, Mallampati is 2, no thrush Eyes PERRL, EOMs intact bilaterally and conjunctivae normal Eyes Narrative: Conjunctiva are pale bilaterally, no scleral icterus Neck no lymphadenopathy, supple, no JVD, thyroid normal and no carotid bruits Neck Narrative: Trachea midline, no thyroid enlargement General: trachea midline Resp normal respiratory effort, no retractions, no use of accessory muscles and clear to auscultation bilaterally Auscultation: Negative for rales, rhonchi or wheezes Cardio regular rate, regular rhythm, S1 normal heart sound, S2 normal heart sound, no murmurs, no rub, no gallops and no clicks GI normal to inspection, nondistended, normoactive bowel sounds, soft to palpation, non-tender and non-distended Extremity no clubbing, cyanosis or edema Extremity Narrative: Decreased lean muscle mass, pedal pulses are 2+, radial pulses are 2+ Skin skin turgor normal and no jaundice Skin Narrative: Patient with ulceration and large mass on her right breast Neuro oriented x3, CN's II-XII intact bilaterally, moves all extremities and no focal motor deficits Neuro Narrative: Generalized weakness noted but no focal deficits appreciated Speech: speech normal Psych affect normal Psych Narrative: Calm today, interacts appropriately Medical Records Data Medical Nutrition Assessment Dietitian: Malnutrition Criteria Met Start: 11/10/23 14:02 Freq: Status: Active Protocol: Document 11/15/23 13:21 RMA (Rec: 11/15/23 13:21 RMA [id number]) Nutrition Malnutrition Evidence of Malnutrition Exists Yes Malnutrition (moderate): Chronic Evidenced By Suboptimal Energy Intake ( Moderate),Physical Changes ( Mild) Clinical Problem Chronic Disease or Condition Related Malnutrition Etiology moderate, chronic malnutrition related to inadequate energy intake w/ increased energy needs d/t fungating mass Signs/Symptoms as evidenced by mild muscle wasting/fat loss evident in orbital, clavicle, acromion, and temporal areas, estimated PO intake meeting <75% of estimated energy needs > 3 months Status Active Problem Recommendation Dietitian Recommendations/Changes Will continue liberalized regular diet with ensure plus high protein 120mL 4x/day w/ medpass as ordered. Will sign off, plans for d/c home with hospice--consult as needed. Weight / BMI Weight Weight: 73.3 kg Body Mass Index (BMI) 26.0 ABG / Lab / Microbiology Data 11/14/23 05:00 11/10/23 03:07 Laboratory: Laboratory Results - last 24 hr 11/14/23 05:00: Sickle Cell Solubility Negative Microbiology: Microbiology 11/11/23 19:59 Blood Culture (Wb) - Right Wrist Blood Culture - Preliminary No growth in 48 hours. 11/11/23 19:50 Blood Culture (Wb) - Right Hand Blood Culture - Preliminary No growth in 48 hours. D/C Instructions Discharge Diet: No restrictions Meaningful Use Info Meaningful Use Meaningful Use Diagnoses (Choose all that apply): None applicable Ischemic Stroke Statin Dosing Therapy Reference: STATIN DOSE THERAPY REFERENCE: * Patients > 75 years receive moderate or high dose statin therapy. * Patients 75 years or YOUNGER should receive HIGH intensity statin dose unless contraindicated. You will be required to document reason for non-treatment if statin daily dose does not meet guidelines. HIGH DOSE STATIN THERAPY DAILY Atorvastatin > than or = to 40 mg Rosuvastatin > than or = to 20 mg Amlodipine + Atorvastatin > than or = to 2.5/40 mg Ezetimibe + Simvastatin 10/80 mg Simvastatin 80mg Discharge Plan Admission Admit Date/Time: 11/09/23 14:59 Primary Reason for Your Visit: Abn Lab/R Breast wound and mass Attending Provider: Josette Bhandari Primary Care Provider: Care Physician,No Primary Consulting Providers: Jane Blum; Patricio Mendes; Skylar Holbrook; William Richmond; Kendall Wynne; Belgica Dong; Ashley Arias; Nedra Montero LEGAL TRANSCRIBER Discharge Orders/Prescriptions Prescriptions: New gabapentin 100 mg Capsule 200 mg PO TIDCM Qty: 18 0RF ibuprofen 200 mg Tablet 400 mg PO Q6 Qty: 24 0RF lorazepam 0.5 mg Tablet 0.5 mg PO TID Qty: 9 0RF nystatin 100,000 unit/mL Suspension 500,000 unit PO 4X/DAY Qty: 60 0RF oxycodone 5 mg Tablet 10 mg PO Q3H PRN PRN (Reason: Pain Score 4-10) 3 Days Qty: 54 0RF oxycodone [OxyContin] 10 mg Tablet,Oral Only,Ext.Rel.12 Hr 20 mg PO BID 3 Days Qty: 12 0RF pantoprazole 40 mg Tablet,Delayed Release (Dr/Ec) 40 mg PO DAILY Qty: 30 0RF sennosides-docusate sodium [Stool Softener-Stimulant Laxat] 8.6-50 mg Tablet 2 tab PO BID Qty: 60 0RF acetaminophen 500 mg Tablet 1,000 mg PO Q8 Qty: 0 0RF Discontinued aspirin 325 mg capsule 325 mg PO DAILY acetaminophen [Acetaminophen Extra Strength] 500 mg tablet 1,000 mg PO Q2H PRN (Reason: pain) Patient Comments: PT STATES TRYS TO TAKE Q4H Galzin 50 mg (zinc) capsule 50 mg PO DAILY No Action multivitamin [Daily Multi-Vitamin] Tablet 1 tab PO DAILY Referrals / Follow Up: Care Physician,No Primary [Primary Care Provider] - Disposition Disposition (needs filled in before D/C Order can be placed): Hospice in Home Charges/Coding Visit Charges Inpatient E&M: 34945 Disch Hosp >30min
--- NOTE | 2023-11-16 13:02 | CASEMGMT ---
payroll master was at [facility] to talk with patient. Patient stated her sister in law will be in after work to pick her up. Physician already wrote prescriptions and sent them to [facility] Pharmacy. BALAJI called Nataliya at Hospice and let her know that patient does not have prescription insurance. Nataliya said as long as patient is leaving today she can switch patient to Hospice. That way Hospice can pay for the medications. BALAJI notified [facility] pharmacy. Plan: d/c home with [facility]. Patient's sister in law will transport patient. Patricia FERMIN
[2023-11-16 15:29] VITALS: BP 122/66; PULSE 95; RESP 16; TEMP 36.9; O2SAT 95
[2023-11-16] MEDS: oxyCODONE 5 MG Tablet 10 MG PO (15:38)
[2023-11-16] MEDS: Ensure Plus High Protein 120 ML LIQUID PO (15:38)
== END 2023-11-16 18:51 | disposition hospice, home (50) | DRG 598 ==
LOC: ED 14:38 → MS3 14:59 → PCU 16:46
PROVIDERS: Internal Medicine; Surgery; Admitting Provider Family Medicine; Emergency Provider Emergency Medicine; Visit Provider Internal Medicine
DX: C50.811 Malignant neoplasm of overlapping sites of right female breast (principal); E44.0 Moderate protein-calorie malnutrition; D62 Acute posthemorrhagic anemia; D63.0 Anemia in neoplastic disease; I10 Essential (primary) hypertension; D72.829 Elevated white blood cell count, unspecified; E61.1 Iron deficiency; D75.838 Other thrombocytosis; Z17.1 Estrogen receptor negative status [ER-]; Z68.26 Body mass index [BMI] 26.0-26.9, adult; R59.0 Localized enlarged lymph nodes; Z66 Do not resuscitate; R73.9 Hyperglycemia, unspecified; Z90.12 Acquired absence of left breast and nipple
CPT/HCPCS: 36415; 70470; 71260; 74177; 77014; 77280; 77295; 77300; 77334; 77387; 77412; 80053; 81001; 81002; 82728; 82962; 83540; 83550; 83690; 83735; 84100; 85014; 85018; 85025; 85610; 85660; 85730; 86644; 86850; 86900; 86901; 86920; 86922; 87040; 88305; 88341; 88342; 93005; 94668; 97110; 97163; 97166; 97530; 97535; 97802; 99252; 99285; J2185; J7030; J7040; P9016; Q9967; A4216; G0463; J2405